=== PATIENT | male | born 1950 | race Caucasian/White ===

== ENCOUNTER 2016-06-26 05:32 | Day surgery (SDC) | payer MEDICARE, OTHER ==
[2016-06-25 16:04] LABS: BASOPHILS 1.4 % (0-2); EOSINOPHILS 5.3 % (0-7); HEMATOCRIT 36.1 % (42.0-54.0); HEMOGLOBIN 11.5 g/dL (13.5-17.5); IMMATURE GRANULOCYTES 0.2 % (0-5); LYMPHOCYTES 14.8 % (15-50); MCH 31.6 pg (26.0-34.0); MCHC 31.9 g/dL (31.0-37.0); MCV 99.2 fL (80.0-100.0); MEAN PLATELET VOLUME 11.1 fL (7.4-10.4); MONOCYTES 8.7 % (2-11); NEUTROPHILS 69.6 % (40-80); RBC 3.64 10x6/uL (4.20-6.10); WBC 5.6 10x3/uL (4.8-10.8)
[2016-06-25 16:12] LABS: PLATELET COUNT 132 10x3/uL (130-400)
[2016-06-25 16:20] LABS: ANION GAP 13.1 mmol/L (8-16); APTT 27.5 SECONDS (22.8-39.4); CALCIUM 7.7 mg/dL (8.5-10.1); CARBON DIOXIDE 29.7 mmol/L (21.0-32.0); INR 1.04 (0.85-1.17); POTASSIUM - SERUM 4.8 mmol/L (3.5-5.1); PROTIME 13.5 SECONDS (11.6-15.0)
[~2016-06-26] VITALS: Ht 190.5 cm; Wt 70.5 kg
--- NOTE | ~2016-06-26 | OP ---
PATIENT NAME: LAURI BRAVO MEDICAL RECORD: [id number] :48 LOCATION:D.M2 D.2107 ADMISSION DATE: SURGEON: SANDRA EDWARDS MD DATE OF OPERATION: 06/26/2016 REFERRING PHYSICIAN: Ajith Morris MD. PREOPERATIVE DIAGNOSES: Exit site infection and superficial cuff infection of the peritoneal dialysis catheter in the right lower quadrant and symptomatic reducible initial periumbilical epigastric hernia and bilateral reducible initial inguinal hernias. POSTOPERATIVE DIAGNOSES: Exit site infection and superficial cuff infection of the peritoneal dialysis catheter in the right lower quadrant and periumbilical epigastric hernia approved to be an initial epigastric incisional hernia at the site of prior laparoscopic access and the inguinal hernias were both direct inguinal hernias. OPERATIONS PERFORMED: Repair of bilateral direct inguinal hernias using Phasix Plug and Patch on the right and PerFix Light Plug and Patch on the left side. On the left side, 2 large plugs were used whereas on the ____, a single extra large size Phasix plug was used. Additionally, there was a mesh repair of the periumbilical incisional hernia using a 1.7 inch diameter circular or round Ventralex ST hernia mesh and then also revision of peritoneal dialysis catheter by removal of the superficial cuff and culturing of the exit site and tract. SURGEON: Sandra Edwards MD. 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 PREOPERATIVE NOTE: Mr. Bravo is a very nice 66-year-old white male patient from [place], referred I think by Dr. Morris. 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 He has a functioning large nice brachiocephalic AV fistula on the left arm and he is brought to the operating room at this time with plans to repair all 3 of his hernias. Hopefully, we can fix his peritoneal catheter by shaving off the superficial cuff and then going on hemodialysis for the next 4-6 weeks, preferably 6 weeks while his hernia repairs heal before resuming peritoneal dialysis. DESCRIPTION OF PROCEDURE: Under anesthesia, the patient was prepped and draped in a sterile manner in supine position. The inguinal hernias were repaired first and the right side was done first. An oblique incision was made in the subcutaneous tissues divided with electrocautery. The external oblique aponeurosis was opened parallel to the inguinal canal. The cord was mobilized and retracted with a [place] drain and a large direct inguinal hernia was dissected and its margin incised. The hernia was then reduced into the preperitoneal space. I inserted a size extra large Phasix absorbable plug and it was sutured in position circumferentially with interrupted simple 3-0 sutures. The mesh was then applied to the floor of the canal and sutured in place again with interrupted simple 3-0 sutures. It was sutured to the shelving edge of the inguinal ligament and to the internal oblique muscle and aponeurosis superiorly. The mesh was cut in a keyhole so as to fit around the cord laterally. The wound was irrigated with Ancef and gentamicin solution, infiltrated and irrigated with 0.25% Marcaine with epinephrine. The external OPERATIVE REPORT [id number] LAURI BRAVO C oblique was then approximated over the cord with interrupted 3-0 Vicryl. Negro fascia was closed with interrupted 3-0 Vicryl and the skin was closed with running intracuticular 4-0 Monocryl. The left side was then approached in exactly the same manner. The operative findings were the same, only the hernia was actually a little larger. We did not have another extra large either Phasix or PerFix plug, so I used 2 size large PerFix polypropylene mesh plugs; they were sutured together and then placed into the defect and sutured circumferentially with interrupted 3-0 Vicryl. The PerFix Light mesh patch was then applied to the floor of the canal. Again, a keyhole was cut for the cord. The external oblique aponeurosis approximated over it. The wound infiltrated with 0.25% Marcaine with epinephrine and irrigated with antibiotic solution. The Negro fascia layer was closed with 3-0 and the skin closed with running intracuticular 4-0 Monocryl and the skin closed with Dermabond. The incisions were dressed with Maxorb Ag, Tegaderm and Cavilon skin prep. The peritoneal catheter was isolated during this portion of the operation. It was at this point exposed and with some blunt dissection, the superficial cuff freed from the surrounding tissues and I was able to pull it and stretch the catheter, so that it came out through the exit site. I then used a 10-blade scalpel to shave off the cuff and was able to do so without any nicks or cuts into the tube. I cultured the exit site in the tunnel for aerobic and anaerobic organisms. It was subsequently dressed with a chlorhexidine Biopatch and dressed with Tegaderm. The catheter itself was flushed with saline and then the heparin locked and curled up on the abdominal wall in the right lower quadrant and that was covered with a Medipore dressing. I then re-prepped the rest of the abdomen and draped off the peritoneal dialysis catheter. A midline incision was made just from the umbilicus to about an inch above. Hemostasis was obtained with electrocautery and electrocautery dissection was used to dissect the incisional hernia sac from the surrounding tissues. It was opened and resected. I inserted a 1.7 inch diameter that size small Ventralex ST hernia patch and deployed it against the anterior abdominal wall. The fascial defect was then approximated transversely with interrupted 0 Vicryl sutures, which also incorporated the strap on the Ventralex patch. The excess strap was trimmed away. The wound irrigated with Ancef and gentamicin solution, infiltrated with Marcaine and closed in layers with interrupted 0 Vicryl and interrupted inverted 3-0 Vicryl and the skin was closed with running intracuticular 4-0 Monocryl. It was sealed and the closure completed with Dermabond glue. It was dressed with Maxorb Ag, Tegaderm and Cavilon skin prep. The patient was at that point awakened and taken to the recovery room in stable condition. Blood loss during the operation was trivial and then unreplaced and all sponges, instruments, and needles were accounted for at the termination of the operation. The surgical specimen consisted of the incisional hernia sac and no drain was used. PLAN: For the patient to remain in overnight observation to be certain that his pain is controlled and he is able to initiate hemodialysis tomorrow, I believe. 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 TRANSINT:[id number] Voice Confirmation ID: [id number] DOCUMENT ID: [id number] OPERATIVE REPORT [id number] LAURI BRAVO JAMES MD CC: AJITH MORRIS MD [id number] DICTATION DATE: 06/26/161425 AIRCRAFT CLEANER: 06/26/162038 [facility] [address] [place] [address]
[~2016-06-26 05:32] MED LIST: BAYER CHEWABLE81 MG PO; EZFE 200200 MG PO; LISINOPRIL2.5 MG PO; OMEPRAZOLE20 M1 PO; PHOSLO667 MG PO; TOPROL XL50 MG PO; ULTRAM50 MG PO; ZOCOR10 MG PO
[2016-06-26 06:21] VITALS: BP 162/90; BMI 19.4
[2016-06-26 13:02] VITALS: BP 154/76
[2016-06-26 13:23] VITALS: BP 157/76; Ht 190.5 cm; Wt 70.5 kg
[2016-06-26 16:28] VITALS: BP 142/79
[2016-06-26 20:00] VITALS: BP 158/84
[2016-06-27] VITALS: BP 116/50
[2016-06-27 04:00] VITALS: BP 126/72
[2016-06-27 05:52] LABS: BASOPHILS 0.5 % (0-2); EOSINOPHILS 0 % (0-7); HEMATOCRIT 31.2 % (42.0-54.0); HEMOGLOBIN 9.9 g/dL (13.5-17.5); IMMATURE GRANULOCYTES 0.2 % (0-5); LYMPHOCYTES 7.2 % (15-50); MCH 31.4 pg (26.0-34.0); MCHC 31.7 g/dL (31.0-37.0); MONOCYTES 9.7 % (2-11); NEUTROPHILS 82.4 % (40-80); PLATELET COUNT 137 10x3/uL (130-400); RBC 3.15 10x6/uL (4.20-6.10); RDW 14.3 % (11.5-14.5)
[2016-06-27 06:08] LABS: ANION GAP 17.6 mmol/L (8-16); CALCIUM 7.9 mg/dL (8.5-10.1); CARBON DIOXIDE 23.8 mmol/L (21.0-32.0); CREATININE - SERUM 9.4 mg/dL (0.6-1.3); PHOSPHOROUS 6.8 mg/dL (2.5-4.9); POTASSIUM - SERUM 5.4 mmol/L (3.5-5.1)
[2016-06-27 06:14] LABS: WBC 8.4 10x3/uL (4.8-10.8)
[2016-06-27 08:10] VITALS: BP 188/77
[2016-06-27] MEDS ORDERED: ULTRAM50 MG PO (08:58)
[2016-07-04 15:24] LABS: AEROBE ID Final report (())
== END 2016-06-27 09:45 | disposition home or self-care (01) ==
LOC: D.OPS 05:32 → D.M2 05:32 → D.PAN 08:00 → D.OPS 08:00 → D.M2 12:58 → D.OPS 06-27 09:45
PROVIDERS: Internal Medicine Nephrology; Surgery
DX: T85.71XA Infection and inflammatory reaction due to peritoneal dialysis catheter, initial encounter (principal); K43.9 Ventral hernia without obstruction or gangrene; K42.9 Umbilical hernia without obstruction or gangrene; N18.6 End stage renal disease; Z99.2 Dependence on renal dialysis; I25.10 Atherosclerotic heart disease of native coronary artery without angina pectoris; Z95.1 Presence of aortocoronary bypass graft; Z01.812 Encounter for preprocedural laboratory examination

== ENCOUNTER 2018-03-31 17:21 | Inpatient (IN) | payer MEDICARE, OTHER ==
[~2018-03-31] VITALS: Ht 190.5 cm; Wt 72.7 kg
--- NOTE | ~2018-03-31 | HEMODYNAMI ---
PATIENT:LAURI BRAVO MEDICAL RECORD: [id number] : 46 [id number] ADMISSION DATE: 03/31/18 Generatedon:04/02/20189:27 Patient name: LAURI BRAVO Patient #: [id number] SSN: : 1950 Date of study: 04/02/2018 Page: Of Hemodynamic Procedure Report Patient Data Patient Demographics Procedure consent was obtained First Name: LAURI Gender: Male Last Name: LAWRENCE : 1950 Middle Initial: C Age: 67 year(s) Patient #: [id number] Race: Unknown Additional ID: [id number] Contact details [address]: [address] [place] [address] State: [place] City: [place] Zip code: [address] Past Medical History Allergies Allergen Reaction Date Comments Reported Other allergy 04/02/2018 Lipitor Admission Admission Data Admission Date: 03/31/2018 Admission Time: 19:28 Admit Source: Other Room #: D.2119 Height (in.): 75 BSA: 2 (m2) Height (cm.): 190.5 BMI: 20.17 (kg/m2) Weight (lbs.): 161.34 Weight (kg.): 73.18 Lab Results Lab Result Date: 04/02/2018 Lab Result Time: 5:09 Biochemistry Name Units Result Min Max BUN mg/dl 95 --(----)-* 7 18 Creatinine mg/dl 11.4 --(----)-* 0.6 1.3 CBC Name Units Result Min Max Hematocrit % 29.7 *-(----)-- 42 54 Hemoglobin g/dl 10.1 *-(----)-- 13.5 17.5 Procedure Procedure Types Cath Procedure Diagnostic Procedure LHC LHC w/Coronaries w/Grafts Sedation Charges Moderate Sedation up to 15 minutes PCI Procedure Coronary Stent Coronary Stent Initial Peripheral Cath Diagnostic Procedure Steam Plant Operator Peripheral Procedures Pduuq-Vrnepdr-Nbo-Off Peripheral vascular Intervention Stent Stent Iliac w/plasty Initial Procedure Description Procedure Date Procedure Date: 04/02/2018 Procedure Start Time: 8:59 Procedure End Time: 9:23 Procedure Staff Name Function Felton Apple MD Performing Physician Morgan Bañuelos RT Monitor Angelic Mendez RT Scrub Vini Mendoza RN Nurse Procedure Data Cath Procedure Fluoroscopy Diagnostic fluoroscopy Total fluoroscopy Time: 5.3 time: 5.3 min min Diagnostic fluoroscopy Total fluoroscopy dose: 845 dose: 845 mGy mGy Contrast Material Contrast Material Type Amount (ml) Isovue 300 176 Entry Location Entry Primary Successful Side Size Upsize 1 Upsize Entry Closure Phillips ccessful Closure Location (Fr) (Fr) 2 (Fr) Remarks Device Remarks Femoral Left 5 Fr 6 Fr 6 Fr Exoseal artery Mid-Length Short Estimated blood loss: 10 ml Diagnostic catheters Device Type Used For End Catheter Placement MULTIPACK 3DRC 5Fr Procedure catheter MULTIPACK JL 4.0 5Fr Procedure catheter DIAGNOSTIC AR2 MOD 5 Fr Procedure catheter ([id number]) MULTIPACK Pigtail 5 Fr Procedure catheter Procedure Complications No complications Procedure Medications Medication Administration Route Dosage 0.9% NaCl I.V. 10 ml/hr Oxygen etCO2 Nasal cannula 2 l/min Heparin Flush Bag added to field 2 bags (1000units/500ml NS) Lidocaine 2% added to field 20 Benadryl I.V. 50 mg Versed I.V. 1 mg Fentanyl I.V. 50 mcg Versed I.V. 1 mg Fentanyl I.V. 50 mcg Heparin Bolus I.V. 4000 units Integrilin (Bolus I.V. 6.8 ml 2mg/ml) Integrilin (Bolus wasted 3.2 ml 2mg/ml) Plavix P.O. 600 mg Hemodynamics Rest BSA: 2 (m2) HGB: 10.1 (g/dl) O2 Consumption: Estimated: 204.41 (ml/min) O2 Consu mption indexed: Estimated:102.2 (ml/min/m) Heart Rate: 34 (bpm) Pressure Samples Time Site Value (mmHg) Purpose Heart Use Rate(bpm) 9:06 LV 148/8,94 Snapshot 29 Snapshots Pre Cath Intra NCS Post Cath Vital Signs Time Heart Resp SPO2 etCO2 NIBP (mmHg) Rhythm Pain Sedation Rate (ipm) (%) (mmHg) Status Level (bpm) 8:16:38 81 15 97 0 126/69(99) NSR 0 (11) 10(A) , No pain 8:20:48 72 12 98 0 121/70(103) NSR 0 (11) 10(A) , No pain 8:24:58 69 11 96 1.5 114/65(92) NSR 0 (11) 10(A) , No pain 8:29:06 73 13 95 1.5 102/62(85) NSR 0 (11) 10(A) , No pain 8:33:10 75 13 96 24.2 103/64(87) NSR 0 (11) 10(A) , No pain 8:37:11 71 13 97 20.4 103/64(92) NSR 0 (11) 10(A) , No pain 8:41:15 71 17 97 17.3 107/62(89) NSR 0 (11) 10(A) , No pain 8:45:19 73 13 97 27.2 105/65(89) NSR 0 (11) 10(A) , No pain 8:49:20 69 12 96 12.8 101/67(83) NSR 0 (11) 10(A) , No pain 8:53:22 70 11 97 24.9 102/65(83) NSR 0 (11) 10(A) , No pain 8:57:26 70 13 98 12.1 104/61(87) NSR 0 (11) 10(A) , No pain 9:01:30 76 13 94 30.2 108/63(88) NSR 0 (11) 10(A) , No pain 9:05:33 78 19 92 18.1 104/66(96) NSR 0 (11) 9(A) , No pain 9:09:37 78 18 92 28 104/63(80) NSR 0 (11) 9(A) , No pain 9:13:43 76 14 93 26.4 105/58(85) NSR 0 (11) 10(A) , No pain 9:17:45 85 24 92 12.8 95/67(88) NSR 0 (11) 10(A) , No pain 9:21:44 82 12 93 21.1 92/68(85) NSR 0 (11) 10(A) , No pain Medications Time Medication Route Dose Verified Delivered Reason Notes Effectiveness by by 8:23:32 0.9% NaCl I.V. 10 Vini Vini Per physician ml/hr Reji Mendoza RN RN 8:23:43 Oxygen etCO2 2 Vini Vini Per physician Nasal l/min Reji Mendoza cannula RN RN 8:23:53 Heparin Flush added 2 Vini Vini used for Bag to bags Reji Mendoza procedure (1000units/500ml field RN RN NS) 8:24:08 Lidocaine 2% added 20ml Vini Vini for local to vial Reji Mendoza anesthetic field RN RN 8:24:19 Benadryl I.V. 50 mg Vini Vini Per physician Reji Mendoza RN RN 8:56:15 Versed I.V. 1 mg Vini Vini for sedation Reji Mendoza RN RN 8:56:23 Fentanyl I.V. 50 Vini Vini for sedation mcg Reji Mendoza RN RN 8:59:56 Versed I.V. 1 mg Vini Vini for sedation Reji Mendoza RN RN 9:00:01 Fentanyl I.V. 50 Vini Vini for sedation mcg Reji Mendoza RN RN 9:10:47 Heparin Bolus I.V. 4000 Vini Vini for units Reji Mendoza anticoagulation RN RN 9:11:03 Integrilin I.V. 6.8 Vini Vini for (Bolus 2mg/ml) ml Reji Mendoza antiplatelet RN RN therapy 9:11:14 Integrilin wasted 3.2 Vini Vini to sharp's (Bolus 2mg/ml) ml Reji Mendoza RN RN 9:26:47 Plavix P.O. 600 Vini Vini for mg Reji Mendoza antiplatelet RN RN therapy Procedure Log Time Note 7:54:31 Informed consent obtained and on chart 7:54:39 Admit Source: Other 7:54:52 Diagnostic Cath status Elective 7:54:53 Time tracking: Regular hours (M-F 7:00 - 5:00) 7:54:56 Plan of Care:Hemodynamics will remain stable., Cardiac rhythm will remain stable., Comfort level will be maintained., Respiratory function will remain adequate., Patient/ family verbilizes understanding of procedure., Procedure tolerated without complication., Recovers from procedure without complications.. 7:55:09 H&P Date Dictated: 03/31/2018 Within 30 days and on chart.. 7:55:39 Lab Result : BUN 99 mg/dl 7:55:39 Lab Result : Hemoglobin 8 g/dl 7:55:39 Lab Result : Creatinine 11.4 mg/dl 7:55:39 Lab Result : Hematocrit 23.3 % 7:55:41 Lab results completed and on chart. 7:56:26 Angelic Andrea WILD(R) sent for patient. Start room use. 8:04:23 Patient Weight : 161.34 lbs 8:04:39 Patient Height : 75 inches 8:07:22 Patient received from Med II to CCL 2 Alert and oriented. Tansferred to table in Supine position. 8:07:23 Warm blankets applied, and marcial hugger turned on for patient comfort. 8:07:23 Correct patient and procedure confirmed by team. 8:07:24 ECG and BP/O2 sat monitors applied to patient. 8:15:25 Vital chart was started 8:15:28 Baseline sample Acquired. 8:15:30 Baseline sample Acquired. 8:15:36 Rhythm: sinus rhythm 8:15:37 Full Disclosure recording started 8:15:53 H&P Date Dictated: 03/31/2018 Within 30 days and on chart., H&P Addendum completed by physician on day of procedure. (MUST COMPLETE FOR ALL OUTPATIENTS). 8:15:54 Pre-procedure instructions explained to patient. 8:15:56 Family in waiting room. 8:15:58 Patient NPO since Midnight. 8:16:21 Patient allergic to Other allergyLipitor 8:16:23 Is the patient allergic to Iodine/contrast media? No. 8:16:25 Was the patient premedicated? Yes 8:16:27 Is patient on blood thinner?No 8:18:09 Patient diabetic? No. 8:18:14 Snore? No 8:18:15 Sleep apnea? No 8:18:21 Patient pain scale 0/10 ?. 8:18:30 IV patent on arrival in right forearm with 0.9% NaCl at KVO. 8:18:39 Left groin area was prepped with chlora-prep and draped in sterile fashion 8:18:41 Alarms reviewed by R. N. 8:18:41 Sharps counted by scrub and verified by R.N. 8:23:32 0.9% NaCl 10 ml/hr I.V. was administered by Vini Mendoza RN; Per physician; 8:23:43 Oxygen 2 l/min etCO2 Nasal cannula was administered by Vini Mendoza RN; Per physician; 8:23:53 Heparin Flush Bag (1000units/500ml NS) 2 bags added to field was administered by Vini Mendoza RN; used for procedure; 8:24:08 Lidocaine 2% 20ml vial added to field was administered by Vini Mendoza RN; for local anesthetic; 8:24:19 Benadryl 50 mg I.V. was administered by Vini Mendoza RN; Per physician; 8:28:16 Lab Result : BUN 95 mg/dl 8:28:16 Lab Result : Creatinine 11.4 mg/dl 8:28:16 Lab Result : Hemoglobin 10.1 g/dl 8:28:16 Hemodynamic formulas in Rest were re-calculated based on hemoglobin value from 04/02/2018 5:09:00 AM 8:28:16 Lab Result : Hematocrit 29.7 % 8:28:28 Use device set Femoral Dx 8:28:29 ACIST Syringe (40936) opened to sterile field. 8:28:30 Bag Decanter (2002S) opened to sterile field. 8:28:30 Medline Cath Pack ([id number]) opened to sterile field. 8:28:31 ACIST Hand Control (73932) opened to sterile field. 8:28:31 ACIST Manifold (82912) opened to sterile field. 8:28:32 Tegaderm 4 x 4 (1626W) opened to sterile field. 8:28:34 DIAGNOSTIC Multipack 5Fr catheter set (PG0004) opened to sterile field. 8:28:35 DIAGNOSTIC WIRE .035 260cm J wire (185404) opened to sterile field. 8:31:03 Baseline sample Acquired. 8:32:59 Zero performed for pressure channel P1 8:53:07 Physician arrived 8:53:07 --------ALL STOP TIME OUT------ 8:53:07 Final Timeout: patient, procedure, and site verified with staff and physician. All members of the team are in agreement. 8:53:09 Left groin site verified by team. 8:53:16 Fire Safety Assessment: A--An alcohol-based skin anteseptic being used preoperatively., C--Open oxygen or nitrous oxide is being used., D--An ESU, laser, or fiber-optic light is being used. 8:53:18 Physical assessment completed. ASA score P 3 - A patient with severe systemic disease as per Felton Apple MD. 8:53:20 Sedation plan: IV Moderate Sedation Medication:Versed, Fentanyl 8:56:15 Versed 1 mg I.V. was administered by Vini Mendoza RN; for sedation; 8:56:23 Fentanyl 50 mcg I.V. was administered by Vini Mendoza RN; for sedation; 8:56:29 SHEATH 5FR Cordis Dina([id number]) NO COST SUPPLY opened to sterile field. 8:59:04 Procedure started. 8:59:06 Local anesthetic to left femerol artery with Lidocaine 2% by Felton Apple MD.INITIAL ACCESS ONLY 8:59:17 A 5 Fr sheath was inserted into the Left Femoral artery 8:59:56 Versed 1 mg I.V. was administered by Vini Mendoza RN; for sedation; 9:00:01 Fentanyl 50 mcg I.V. was administered by Vini Mendoza RN; for sedation; 9:01:04 A MULTIPACK 3DRC 5Fr catheter was advanced over the wire and used for Procedure. 9:01:48 RCA angiography performed. 9:02:10 SVG to RCA angiography performed. 9:02:25 Catheter exchanged over wire. 9:02:56 A MULTIPACK JL 4.0 5Fr catheter was advanced over the wire and used for Procedure. 9:03:28 LCA angiography performed. 9:04:38 Catheter exchanged over wire. 9:04:45 A DIAGNOSTIC AR2 MOD 5 Fr catheter ([id number]) was advanced over the wire and used for Procedure. 9:05:01 INFLATOR Merit BasixCompak (AH2654) opened to sterile field. 9:05:01 CHOICE PT Extra Support 182cm wire ([id number]) opened to sterile field. 9:05:02 SHEATH 6FR [place] (LVH861) opened to sterile field. 9:05:48 SVG to Circ angiography performed. 9:06:27 Catheter exchanged over wire. 9:06:32 A MULTIPACK Pigtail 5 Fr catheter was advanced over the wire and used for Procedure. 9:07:18 LV gram done using KIM 9::21 Injector settings: Ml/sec: 10, Volume: 20, 9::25 EF : 40 % 9:07:25 LV hemodynamics recorded. 9:07:28 Abdominal angiogram w/ runoff was performed. 9:07:32 Left leg runoff performed. 9:07:33 Right leg runoff performed. 9::55 Catheter removed. 9:08: SHEATH 6FR Brite Tip 35cm ([id number]) opened to sterile field. 9:08:38 Sheath upsized to a 6 Fr Mid-Length. 9:10:47 Heparin Bolus 4000 units I.V. was administered by Vini Mendoza RN; for anticoagulation; 9:11:03 Integrilin (Bolus 2mg/ml) 6.8 ml I.V. was administered by Vini Mendoza RN; for antiplatelet therapy; 9:11:09 J wire advanced. 9:11:14 Integrilin (Bolus 2mg/ml) 3.2 ml wasted was administered by Vini Mendoza RN; to sharp's; 9:11:54 Procedure type changed to Cath procedure, Diagnostic procedure, LHC, LHC w/Coronaries w/Grafts, Sedation Charges, Moderate Sedation up to 15 minutes, PCI procedure, Coronary Stent, Coronary Stent Initial, Peripheral Cath Diagnostic Procedure, Steam Plant Operator Peripheral Procedures, Makni-Esdauey-Gjt-Off, Peripheral vascular Intervention, Stent, Stent Iliac w/plasty Initial 9:12:35 Place stent Inflation Number: 1 A OSMAN 7 x 29 x 135 stent ([id number]) was prepped and advanced across the Proximal Common Iliac, Left. The stent was deployed at 13 SHASHI for 0:10 (min:sec). 9:12:37 Stent catheter was removed intact over wire. 9:12:43 GUIDE 6FR XBLAD 3.5 catheter ([id number]) opened to sterile field. 9:12:50 6 Fr xblad 3.5 guide catheter was inserted over the wire 9:14:15 J wire removed. 9:14:23 choice pt es wire advanced. 9:14:59 Wire advanced across lesion. 9:18:10 Place stent Inflation Number: 1 A INTEGRITY RX 3.5 x 09 stent ([id number]) was prepped and advanced across the LMCA. The stent was deployed at 17 SHASHI for 0:10 (min:sec). 9:18:14 Stent catheter was removed intact over wire. 9:18:14 Wire removed. 9:18:17 Guide catheter removed. 9:18:52 EXOSEAL 6Fr (EX600) opened to sterile field. 9:19:07 Sheath upsized to a 6 Fr Short. 9:19:15 Sheath removed intact; hemostasis achieved with Exoseal to the Left Femoral artery. 9:19:16 Procedure ended.(Physican Out) 9:20:19 FEMSTOP Gold (H83094) opened to sterile field. 9:20:31 Femstop placed over the left femerol artery at 125 mmHg. Hemostasis achieved. 9:20:36 Fluoroscopy time 05.30 minutes. 9:20:39 Fluoroscopy dose: 845 mGy 9:20:39 Flurop Dose total: 845 9:20:42 Contrast amount:Isovue 300 176ml. 9:20:43 Sharps counted by scrub and verified by R.N. 9:20:44 Insertion/operative site no bleeding no hematoma. 9:20:48 Post-op/insertion site Left Femoral artery dressed using a 4 x 4 and Tegaderm. 9:20:54 Post left femerol artery:stable, soft, clean and dry 9:20:55 Post Procedure Pulses reassessed and unchanged 9:20:57 Post-procedure physical assessment completed. ASA score P 3 - A patient with severe systemic disease as per Felton Apple MD. 9:21:03 Post procedure rhythm: unchanged. 9:21:19 Estimated blood loss: 10 ml 9:21:20 Post procedure instruction explained to patient.Patient verbalizes understanding. 9:21:20 Patient needs reinforcement of post procedure teaching. 9:23:00 Procedure Complication : No complications 9:23:02 Procedure and supply charges have been captured, reviewed, submitted and are correct. 9:23:03 Vital chart was stopped 9:23:03 See physician's report for complete and final results. 9:23:05 Report given to PCU. 9:23:07 Patient transfered to PCU with Stretcher. 9:23:09 Procedure ended. 9:23:09 Full Disclosure recording stopped 9:23:15 End room use (Document Last) 9:26:47 Plavix 600 mg P.O. was administered by Vini Mendoza RN; for antiplatelet therapy; Intervention Summary Intervention Notes Time ActionType Lesion and Equipment Action# Pressure Duration Attributes Used 9:12:35 Place stent Proximal OSMAN 7 x 1 13 00:10 Common 29 x 135 Iliac, Left stent ([id number]) 9:18:10 Place stent LMCA INTEGRITY RX 1 17 00:10 3.5 x 09 stent ([id number]) Device Usage Item Name Manufacture Quantity Catalog Number Hospital Part Current Minimal Lot# / Charge Number Stock Stock Serial# Code ACIST Syringe Acist 1 58062 213312 228571 243347 20 (53276) Medical Systems [employer] Bag Decanter Microtek 1 2001S 513507 65624 090205 5 (2001S) Medical Inc. Medline Cath Medline 1 [id number] 382484 34371 362432 5 Pack ([id number]) ACIST Hand Acist 1 11363 780302 941989 964643 5 Control (12223) Medical [employer] ACIST Manifold Acist 1 84236 886786 330779 212061 5 (60234) Medical Systems [employer] Tegaderm 4 x 4 3M 1 1626W 923584 732431 985480 5 (1626W) DIAGNOSTIC Cardinal 1 FN9543 616705 05732 351229 30 Multipack 5Fr Health catheter set (CI0905) DIAGNOSTIC WIRE St Dajuan 1 565401 693200 993240 786083 30 .035 260cm J wire (205541) SHEATH 5FR Cardinal 1 504-605X 289474 831518 5 [employer]. [employer] Dina(504-605X) NO COST SUPPLY MULTIPACK 3DRC Cardinal 1 159378 5 5Fr catheter Health MULTIPACK JL 4.0 Cardinal 1 280435 5 5Fr catheter Health DIAGNOSTIC AR2 Cardinal 1 [id number] 124966 881752 018735 20 MOD 5 Fr Health catheter (372595Y) INFLATOR Merit Merit 1 BQ5116 445724 765329 213385 15 Urjanet (WC5209) CHOICE PT Extra [place] 1 [id number] 047412 489949 877895 5 Support 182cm Scientific wire ([id number]) SHEATH 6FR Terumo 1 HXW621 722779 684606 025496 40 [place] (YXX142) MULTIPACK Cardinal 1 849158 5 Pigtail 5 Fr Health catheter SHEATH 6FR Brite Cardinal 1 668541G 591569 154040 495554 1 Tip 35cm Health (585968I) OSMAN 7 x 29 x Cardinal 1 [id number] 501968 794958 5 [id number] 135 stent Health ([id number]) GUIDE 6FR XBLAD Cardinal 1 [id number] 354073 424305 928732 10 3.5 catheter Health (84983718) INTEGRITY RX 3.5 Medtronic 1 [id number] 377079 735969 268895 5 [id number] x 09 stent ([id number]) EXOSEAL 6Fr Cardinal 1 EX600 538053 113281 919728 10 (EX600) Health FEMSTOP Gold St Dajuan 1 D32629 100928 632665 081955 5 ([id number]) Signature Audit Murdo Stage Time Signature Unsigned Intra-Procedure 04/02/2018 Morgan Bañuelos 9:27:40 AM RT(R) Signatures Monitor : Moragn Bañuelos RT Signature : Date : Time : [id number] [place] [address]
[2018-03-31 18:00] LABS: BASOPHILS 0.8 % (0-2); EOSINOPHILS 2.7 % (0-7); HEMATOCRIT 25.9 % (42.0-54.0); HEMOGLOBIN 8.7 g/dL (13.5-17.5); IMMATURE GRANULOCYTES 0.3 % (0-5); LYMPHOCYTES 10.1 % (15-50); MCHC 33.6 g/dL (31.0-37.0); MCV 95.2 fL (80.0-100.0); MONOCYTES 10.7 % (2-11); NEUTROPHILS 75.4 % (40-80); RBC 2.72 10x6/uL (4.20-6.10); RDW 14.2 % (11.5-14.5); WBC 7.1 10x3/uL (4.8-10.8)
[2018-03-31 18:11] LABS: PLATELET COUNT 188 10x3/uL (130-400)
--- NOTE | 2018-03-31 18:32 | NUR ---
REPORT GIVEN TO FANNY RAMOS AT THIS TIME.
--- NOTE | 2018-03-31 18:39 | NUR ---
ASSUMED CARE OF PATIENT, LAYING UP ON STRETCHER, DENIES PAIN AT THIS TIME, REQUESTED A WARM BLANKET TRYING TO GET SOME REST.
[2018-03-31 18:43] LABS: ALBUMIN 2.3 g/dL (3.4-5.0); ALKALINE PHOSPHATASE 42 U/L (46-116); ALT (SGPT) 19 U/L (10-68); BILIRUBIN - TOTAL 0.27 mg/dL (0.2-1.3); CALC OSMOLALITY 290 mosm/kg (275-300); CARBON DIOXIDE 23.9 mmol/L (21.0-32.0); CHLORIDE - SERUM 88 mmol/L (98-107); CREATININE - SERUM 11.1 mg/dL (0.6-1.3); GLUCOSE 108 mg/dL (74-106); POTASSIUM - SERUM 3.6 mmol/L (3.5-5.1); PROTEIN - SERUM 5.7 g/dL (6.4-8.2); SODIUM 129 mmol/L (136-145); UREA NITROGEN 100 mg/dL (7-18); eGFR NON AFRICAN AMERICAN 5 mL/min (90-120)
[2018-03-31 18:57] LABS: CKMB 35.3 U/L (0.0-3.6); CREATINE KINASE 362 UL (21-232)
[2018-03-31 19:00] LABS: TROPONIN-I 12.436 ng/mL (0.000-0.060)
[2018-03-31 19:06] VITALS: BP 119/70
--- NOTE | 2018-03-31 19:06 | NUR ---
TROP [phone] MD NOTIFIED, PATIENT RESTING COMFORTABLE AT THIS TIME, DENIES PAIN.
--- NOTE | 2018-03-31 20:10 | NUR ---
REPORT RECEIVED FROM FANNY RAMOS
[2018-03-31] MEDS ORDERED: HYDROCODON-ACE1 EAC7 PO (20:45)
--- NOTE | 2018-03-31 20:50 | NUR ---
MARITA QUINTERO APN PAGED AWAITING CALL BACK
[2018-04-01] VITALS (8 sets, daily range): BP systolic 95–121; BP diastolic 41–63; Ht 190.5 cm; Wt 72.7 kg
[2018-04-01 05:17] LABS: BASOPHILS 0.8 % (0-2); HEMATOCRIT 23.3 % (42.0-54.0); IMMATURE GRANULOCYTES 0.2 % (0-5); LYMPHOCYTES 15.6 % (15-50); MCH 32.5 pg (26.0-34.0); MCHC 34.3 g/dL (31.0-37.0); MCV 94.7 fL (80.0-100.0); MEAN PLATELET VOLUME 10.4 fL (7.4-10.4); MONOCYTES 10.8 % (2-11); NEUTROPHILS 67.6 % (40-80); PLATELET COUNT 169 10x3/uL (130-400); RBC 2.46 10x6/uL (4.20-6.10); RDW 14.1 % (11.5-14.5); WBC 6.4 10x3/uL (4.8-10.8)
[2018-04-01 06:06] LABS: ALBUMIN 1.9 g/dL (3.4-5.0); ANION GAP 17.8 mmol/L (8-16); BILIRUBIN - TOTAL 0.27 mg/dL (0.2-1.3); CALCIUM 7.6 mg/dL (8.5-10.1); CARBON DIOXIDE 25.9 mmol/L (21.0-32.0); CREATININE - SERUM 11.4 mg/dL (0.6-1.3); MAGNESIUM - SERUM 1.7 mg/dL (1.8-2.4); POTASSIUM - SERUM 3.7 mmol/L (3.5-5.1)
[2018-04-01 06:08] LABS: TROPONIN-I 8.708 ng/mL (0.000-0.060)
--- NOTE | 2018-04-01 06:36 | NUR ---
PD FLUID TEA COLORED, MARITA QUINTERO NOTIFIED NEW ORDERS OBTAINED. SPECIMEN TAKEN TO THE LAB
--- NOTE | 2018-04-01 07:30 | NUR ---
ALERT AND ORIENTED X4. SITTING UP IN BED. CONSENTS FOR FISHER LINE SIGNED ON CHART. SINUS RHYTHM ON TELEMETRY. DENIES RT AC SL. DENIES ANY NEEDS. CONTINUE PLAN OF CARE AND SAFETY PRECAUTIONS.
[2018-04-01 11:20] LABS: % SATURATION 17 % (15-55); IRON 43 ug/dl (35-150); TOTAL IRON BIND CAPACITY 241 ug/dl (260-445); UNSAT IRON BIND CAPACITY 198 ug/dl (150-375)
--- NOTE | 2018-04-01 12:55 | NUR ---
ALERT AND ORIENTED X4. SITTING UP IN BED. INITIATING PD EXCHANGE AND PRBC TRANSFUSION. T-97.9, R-16, HR-66 SINUS RHYTHM, O2-100% RA. BEGIN TRANSFUSION @ 75mL/HR. REMAIN IN ROOM TO MONITOR.
--- NOTE | 2018-04-01 13:10 | NUR ---
ALERT AND ORIENTED X4. SITTING UP IN BED. PD EXCHANGE CONTINUED. PRBC TRANSFUSION UNIT 1 RATE INCREASE TO 120 mL/HR. BP-110/52, HR-73, R-18, T-98.5. DENIES ANY ITCHING. NO SIGNS OF REACTION. CONTINUE PLAN OF CARE AND SAFETY PRECAUTIONS.
[2018-04-01 13:18] LABS: EOS BF 4 %; MACROPHAGES BF 30 %; NEUT - BF 22 %
--- NOTE | 2018-04-01 17:40 | NUR ---
ALERT AND ORIENTED X4. PRBC UNIT 1 COMPLETE AT 1630. BAG AND TUBING PLACED IN BIOHAZARD BAG. BP-117/55, HR-77, TEMP-97.6 AXILLARY. TAKEN AXILLARY DUE TO EATING DINNER. INITIATE PRBC UNIT 2 TRANSFUSION. BEGIN TRANSFUSION RATE @ 75mL/HR TO MONITOR FOR REACTION. INITIATE PD EXCHANGE. REMAIN AT BEDSIDE SIDE NEXT 15 MINUTES.
--- NOTE | 2018-04-01 19:12 | NUR ---
RECIEVED UP IN BED WITH EYES OPEN AND TV ON. HOB ELOEVATED. ALERT AND ORIENTED X4. UP AD GARY TO B/R. PD TUBE TO RIGHT LOWER QUADRANT. RIGHT ARM RESERVED D/T AVF. IV TO RIGHT AC SL.. DENIES ANY NEEDS AT THIS TIME. WILL CONT. POC.
[2018-04-01 22:25] LABS: HEMATOCRIT 30.2 % (42.0-54.0); HEMOGLOBIN 10.4 g/dL (13.5-17.5)
[2018-04-02] VITALS: BP 96/32
[2018-04-02 05:20] VITALS: BP 108/67
[2018-04-02 05:29] LABS: BASOPHILS 0.4 % (0-2); EOSINOPHILS 4.8 % (0-7); HEMATOCRIT 29.7 % (42.0-54.0); HEMOGLOBIN 10.1 g/dL (13.5-17.5); IMMATURE GRANULOCYTES 0.6 % (0-5); LYMPHOCYTES 10.5 % (15-50); MCH 31.6 pg (26.0-34.0); MCV 92.8 fL (80.0-100.0); MEAN PLATELET VOLUME 10.2 fL (7.4-10.4); MONOCYTES 11.2 % (2-11); NEUTROPHILS 72.5 % (40-80); PLATELET COUNT 161 10x3/uL (130-400); RDW 15.8 % (11.5-14.5); WBC 7.2 10x3/uL (4.8-10.8)
[2018-04-02 05:47] LABS: ALBUMIN 1.8 g/dL (3.4-5.0); BILIRUBIN - DIRECT 0.08 mg/dL (0.00-0.30); BILIRUBIN - INDIRECT 0.22 mg/dL (0.00-1.00); BILIRUBIN - TOTAL 0.3 mg/dL (0.2-1.3); CALCIUM 7.5 mg/dL (8.5-10.1); CARBON DIOXIDE 25.7 mmol/L (21.0-32.0); CREATININE - SERUM 11.4 mg/dL (0.6-1.3); POTASSIUM - SERUM 3.7 mmol/L (3.5-5.1); PROTEIN - SERUM 4.9 g/dL (6.4-8.2)
--- NOTE | 2018-04-02 07:15 | NUR ---
ASSESSMENT DONE. DENIES NEEDS.
[2018-04-02 07:48] VITALS: BP 109/64
--- NOTE | 2018-04-02 08:04 | NUR ---
to asset availability leader per bed
--- NOTE | 2018-04-02 08:35 | NUR ---
IN [place] AT THIS TIME. WILL CONT. PLAN OF CARE.
--- NOTE | 2018-04-02 09:55 | NUR ---
RETURN FROM [place]ES COLORING OPERATOR. FEMSTOP TO LT GROIN. WITHOUT DISTRESS NOTED
--- NOTE | 2018-04-02 11:20 | OP ---
PATIENT NAME: LAURI BRAVO MEDICAL RECORD: [id number] :46 LOCATION:D.M2 D.2119 ADMISSION DATE:03/31/18 SURGEON: ANEUDY HAY MD DATE OF OPERATION: 04/02/2018 PROCEDURES: 1. PTCA stent left main. 2. Left heart catheterization. 3. Selective coronary angiography. 4. Left ventriculogram. 5. Vein graft angiography. 6. PANIAGUA angiography. INDICATION: Unstable angina, acute coronary syndrome, non-Q-wave myocardial infarction. DESCRIPTION OF PROCEDURE: After informed consent was obtained and after a detailed description of risks, benefits as well as alternative therapies, the patient elected to proceed with angiogram and angioplasty. The left femoral area was prepped and draped in normal sterile fashion. Left femoral artery was cannulated via modified Seldinger technique with placement of 6-Korean sheath. All catheters exchanged through this sheath. FINDINGS: Left ventriculogram was performed in standard 30-degree KIM view, reveals global hypokinesis throughout all segments. Overall ejection fraction estimated at 40%. SELECTIVE CORONARY ANGIOGRAPHY: 1. Left main is 90% stenosed. 2. The left anterior descending is totally occluded mid vessel; however, there is a relatively large diagonal system that is affected by the left main stenosis. 3. The left circumflex has 99% stenosis. 4. Vein graft to the circumflex is widely patent. 5. PANIAGUA to the LAD is widely patent. 6. Right coronary artery is totally occluded. 7. Vein graft to the right coronary artery is widely patent. PTCA STENT OF THE LEFT MAIN LEADING TO NON-GRAFTED LAD DIAGONAL: The stent used was a 3.5 x 9 mm Integrity. Result was 0% residual stenosis. OVERALL IMPRESSION: Successful percutaneous transluminal angioplasty stent of the left main going from 90% initial stenosis to 0% residual. TRANSINT:[id number] Voice Confirmation ID: [id number] DOCUMENT ID: [id number] ANEUDY HAY MD at 1120 CC: [id number] DICTATION DATE: 04/02/18927 AUTO TOP MECHANIC: 04/02/18 0947 ADM IN [place] [id number] [place] [address]
--- NOTE | 2018-04-02 11:20 | OP ---
PATIENT NAME: LAURI BRAVO MEDICAL RECORD: [id number] :46 LOCATION:D.M2 D.2119 ADMISSION DATE:03/31/18 SURGEON: ANEUDY HAY MD DATE OF OPERATION: 04/02/2018 PROCEDURE: 1. Stent placement, iliac, left. 2. DIRECTOR OF SECURITY iliac, left. 3. Aortofemoral runoff. 4. Abdominal aortography. INDICATION: Claudication and peripheral vascular disease. PROCEDURE IN DETAIL: After informed consent was obtained and after a detailed description of risks, benefits as well as alternative therapies, the patient elected to proceed with angiogram and angioplasty. The left femoral area had a preexisting sheath from cardiac intervention. All catheters exchanged through this sheath. OVERALL FINDINGS: Abdominal aortography was performed. The catheter was pulled down for aortofemoral runoff. Abdominal aortography reveals a tortuous aorta, but not stenosed. No dissection or aneurysm formation. RIGHT LEG: A. Iliac: The common internal and external iliacs have moderate irregularities, but no flow-limiting stenosis. B. Femoral system: Common and deep femoral are widely patent. Superficial femoral has moderate irregularities, but no flow-limiting stenosis. C. Popliteal and infrapopliteal vessels are patent giving 3-vessel runoff to the foot, although mild to moderately diffusely diseased. LEFT LEG: A. Iliac: The common iliac has 70+ percent stenosis that we could not get a catheter passed initially. B. Femoral system: The common superficial and deep femoral have moderate irregularities, but no flow-limiting stenosis. There is a previously placed stent in the superficial femoral. This is patent. C. Popliteal and infrapopliteal vessels are patent giving 3-vessel runoff to the foot, although mild to moderately diffusely diseased. DIRECTOR OF SECURITY STENT LEFT ILIAC: The balloon and stent used was a 7 x 29 Cordis Haily taken to 13 atmospheres. Result was 0% residual. OVERALL IMPRESSION: Successful percutaneous transluminal angioplasty stent of the left iliac going from greater than 70% initial stenosis to 0% residual. TRANSINT:[id number] Voice Confirmation ID: [id number] DOCUMENT ID: [id number] OPERATIVE REPORT [id number] LAURI BRAVO ANEUDY HAY MD at 1120 CC: [id number] DICTATION DATE: 04/02/18927 BRICK AND TILE MAKING MACHINE OPERATOR: 04/02/18947 ADM IN [facility] [address] [facility], [facility]
--- NOTE | 2018-04-02 19:42 | NUR ---
RESUMED CARE OF PT, LYING IN BED RESPIRATIONS EVEN AND UNLABORED ON ROOM AIR. 81 SR ON TELEMETRY. RIGHT AC SALINE LOCKED. RIGHT GROIN C/D/I. CALL LIGHT IN REACH. SEE NURSE ASSESSMENT.
[2018-04-02 20:00] VITALS: BP 119/71
[2018-04-03 00:43] VITALS: BP 110/67
[2018-04-03 04:00] VITALS: BP 99/59
[2018-04-03 05:23] LABS: BASOPHILS 0.8 % (0-2); EOSINOPHILS 4.3 % (0-7); HEMATOCRIT 29.9 % (42.0-54.0); HEMOGLOBIN 10.4 g/dL (13.5-17.5); IMMATURE GRANULOCYTES 0.5 % (0-5); LYMPHOCYTES 9.5 % (15-50); MCH 32.2 pg (26.0-34.0); MCHC 34.8 g/dL (31.0-37.0); MCV 92.6 fL (80.0-100.0); MEAN PLATELET VOLUME 10.4 fL (7.4-10.4); MONOCYTES 9.8 % (2-11); NEUTROPHILS 75.1 % (40-80); PLATELET COUNT 177 10x3/uL (130-400); RBC 3.23 10x6/uL (4.20-6.10); RDW 15.9 % (11.5-14.5); WBC 7.7 10x3/uL (4.8-10.8)
[2018-04-03 05:39] LABS: ANION GAP 15.3 mmol/L (8-16); CALCIUM 7.2 mg/dL (8.5-10.1); CARBON DIOXIDE 25.3 mmol/L (21.0-32.0); CREATININE - SERUM 11.7 mg/dL (0.6-1.3); POTASSIUM - SERUM 3.6 mmol/L (3.5-5.1)
--- NOTE | 2018-04-03 07:20 | NUR ---
AWAKE AND ALERT. DENIES ANY NEEDS. TELEMERTY SHOWS SR 66.RIGHT AC SL. LEFT GROIN DRSG DRY AND INTACT. PD CATHER NOTED. RESERVE LEFT ARM. SR UP WITH CALL LIGHT IN REACH
[2018-04-03 07:58] VITALS: BP 105/59
--- NOTE | 2018-04-03 08:47 | NUR ---
Rehab Note- Acute Inpatient Rehab prescreen order received. The patient has a pending PT Eval- will await & see the patient's functional level. Will contiinue to follow. Thank you for this referral! Dayanna Avelar RN Clinical Liaison, [facility] Rehab
--- NOTE | 2018-04-03 09:21 | NUR ---
RESTS IN BED WITHOUT NEEDS VOICED. CALL LIGHT IN REACH. WILL MONITOR.
[2018-04-03 11:33] VITALS: BP 99/55
--- NOTE | 2018-04-03 11:45 | MORECARE ---
CASE MANAGEMENT DISCHARGE SUMMARY PATIENT: LAURI BRAVO UNIT: [id number] ADM DATE: 03/31/18 AGE: 67 : 48 SEX: M ROOM/BED: D.211 AUTHOR: RAHUL GALICIA PHYSICIAN: REFERRING PHYSICIAN: VINICIUS SOSA MD DATE OF SERVICE: 04/03/18 Discharge Plan Patient Name: LAURI BRAVO Facility: [facility]:[place] : 1950 Planned Disposition: Outpatient PT\OT Anticipated Discharge Date: 04/04/18 Discharge Date: Expected LOS: 4 Initial Reviewer: [email or web address] Initial Review Date: 04/03/2018 Generated: 04/03/18 12:45 pm Patient Name: LAURI BRAVO Page 94643 at 1145 All edits/amendments must be made on the electronic document DICTATION DATE: 04/03/18 1145 MACHINE SILK SCREEN PRINTER: KAYLEE 04/03/18 1145 RPT#: [id number] DC DATE: STATUS: ADM IN [facility] [address] [place] [address] END OF REPORT
--- NOTE | 2018-04-03 11:54 | MORECARE ---
CASE MANAGEMENT DISCHARGE SUMMARY PATIENT: LAURI BRAVO UNIT: [id number] ADM DATE: 03/31/18 AGE: 67 : 48 SEX: M ROOM/BED: D.4325 AUTHOR: RAHUL GALICIA PHYSICIAN: REFERRING PHYSICIAN: VINICIUS SOSA MD DATE OF SERVICE: 04/03/18 Discharge Plan Patient Name: LAURI BRAVO [facility] : 1950 Planned Disposition: Outpatient PT\OT Anticipated Discharge Date: 04/04/18 Discharge Date: Expected LOS: 4 Initial Reviewer: [email or web address] Initial Review Date: 04/03/2018 Generated: 04/03/18 12:54 pm DCPIA - Discharge Planning Initial Assessment Updated by [id number]: Marquis Patton on 04/03/18 11:51 am * Is the patient Alert and Oriented? Yes * How many steps to enter\exit or inside your home? 0--I * PCP DR. JOY IN [facility], LAST SEEN 09/2017 DR. ALVAREZ IN [place], FIRST APPT 05/2018 * Pharmacy [facility] IN [place] * Preadmission Environment Home with Family * ADLs Independent * Equipment None * Other Equipment NO MEDICAL EQUIPMENT PROVIDER PREFERENCE * List name and contact numbers for known caregivers / representatives who currently or will assist patient after discharge: MELISSA BRAVO, SPOUSE, CARLEE MOJICA, DTR, * Verbal permission to speak to the caregivers and representatives has been obtained from the patient. Yes * Community resources currently utilized None * Please name any agencies selected above. NONE * Additional services required to return to the preadmission environment? No * Can the patient safely return to the preadmission environment? Yes * Has this patient been hospitalized within the prior 30 days at any hospital? No Patient Name: LAURI BRAVO Page 30503 at 1154 All edits/amendments must be made on the electronic document DICTATION DATE: 04/03/18 1153 BRAKE RELINER: KAYLEE 04/03/18 1153 RPT#: [id number] DC DATE: STATUS: ADM IN [facility] [address] [place] [address] END OF REPORT
--- NOTE | 2018-04-03 12:02 | MORECARE ---
CASE MANAGEMENT DISCHARGE SUMMARY PATIENT: LAURI BRAVO UNIT: [id number] ADM DATE: 03/31/18 AGE: 67 : 48 SEX: M ROOM/BED: D.7339 AUTHOR: FRIDA,DOC PHYSICIAN: REFERRING PHYSICIAN: VINICIUS SOSA MD DATE OF SERVICE: 04/03/18 Discharge Plan Patient Name: LAURI BRAVO Facility: [facility]:[place] : 1950 Planned Disposition: Outpatient PT\\OT Anticipated Discharge Date: 04/04/18 Discharge Date: Expected LOS: 4 Initial Reviewer: [id number] Initial Review Date: 04/03/2018 Generated: 04/03/18 1:02 pm Comments DCP- Discharge Planning Updated by [email or web address]: Marquis Patton on 04/03/18 11:[address] Patient Name: LAURI BRAVO Admission Status: ER Accout number: [id number] Admission Date: 03-31-2018 : 1950 Admission Diagnosis: Attending: VINICIUS SOSA Current LOS: 3 Anticipated DC Date: 04-04-2018 Planned Disposition: Outpatient PT\\OT Primary Insurance: MEDICARE A & B PLANNED [facility] Discharge Planning Comments: CM RECEIVED REQUEST TO SPEAK TO PT AND FAMILY 04-02-18. ON 04-03-18, CM MET WITH PT AND SPOUSE IN ROOM TO DISCUSS DISCHARGE PLANNING AND NEEDS. CM APOLOGIZED FOR NOT BEING ABLE TO SEE THEM ON 04-02. LAURI BRAVO provided verbal consent to discuss current and ongoing needs with/in the presence of: SPOUSE, MELISSA. PT REPORTS LIVING AT HOME INDEPENDENTLY WITH SPOUSE. PT HAS NO MEDICAL EQUIPMENT AND NO OUTSIDE SERVICES ASSISTING IN THE HOME. CM DISCUSSED AVAILABILITY OF HOME HEALTH, REHAB SERVICES AND MEDICAL EQUIPMENT. PT'S SPOUSE REPORTS THAT PT HAS DONE NOTHING FOR THE PAST 4 MONTHS EXCEPT LAY IN THE BED. SPOUSE STATES THAT PT WILL GET UP DAILY, WALK UPSTAIRS TO PLAY GAMES ON HIS COMPUTER BUT IS DOING "NOTHING ELSE". SPOUSE REPORTS SHE WANTS PT IN SKILLED OR INPATIENT REHAB. PT DECLINES PLACEMENT. PT'S SPOUSE ASKED ABOUT TAKING PT TO THE [facility] FOR REHAB. PT IS AGREEABLE FOR THIS. PT'S SPOUSE TO TRANSPORT HOME AT DISCHARGE. CM NOTIFIED AVIS BE OF PT AND FAMILY REQUEST. CM CALLED [facility], , LEFT MESSAGE ASKING FOR RETURN CALL IN REGARD TO REHAB REFERRAL. CM FAXED REFERRAL FOR OUTPATIENT REHAB SERVICES TO [facility] AT [phone]. [facility] TO CONTACT PT VIA PHONE TO ARRANGE OUTPATIENT REHAB THERAPY SERVICES. FAMILY TO TRANSPORT HOME. CM TO FOLLOW AND ASSIST NEEDED. Chief Building Inspector: Marquis Patton SDPIA - Discharge Planning Initial Assessment Updated by [id number]: Marquis Patton on 04/03/18 11:51 am * Is the patient Alert and Oriented? Yes * How many steps to enter\\exit or inside your home? 0--I * PCP [facility] JOY IN [facility], LAST SEEN 09/2017 DR. ALVAREZ IN [place], FIRST APPT 05/2018 * Pharmacy [facility] IN [place] * Preadmission Environment Home with Family * ADLs Independent * Equipment None * Other Equipment NO MEDICAL EQUIPMENT PROVIDER PREFERENCE * List name and contact numbers for known caregivers / representatives who currently or will assist patient after discharge: MELISSA BRAVO, SPOUSE, CARLEE MOJICA, DTR, * Verbal permission to speak to the caregivers and representatives has been obtained from the patient. Yes * Community resources currently utilized None * Please name any agencies selected above. NONE * Additional services required to return to the preadmission environment? No * Can the patient safely return to the preadmission environment? Yes * Has this patient been hospitalized within the prior 30 days at any hospital? No Last DP export: 04/03/18 10:54 a Patient Name: LAURI BRAVO Page 98069 at 1202 All edits/amendments must be made on the electronic document DICTATION DATE: 04/03/181201 SMT MACHINE OPERATOR: KAYLEE 04/03/181201 RPT#: [id number] DC DATE: STATUS: ADM IN [facility] [address] [place] [address] END OF REPORT
--- NOTE | 2018-04-03 12:11 | MORECARE ---
CASE MANAGEMENT DISCHARGE SUMMARY PATIENT: LAURI BRAVO UNIT: [id number] ADM DATE: 03/31/18 AGE: 67 : 48 SEX: M ROOM/BED: D.9995 AUTHOR: FRIDA,DOC PHYSICIAN: REFERRING PHYSICIAN: VINICIUS SOSA MD DATE OF SERVICE: 04/03/18 Discharge Plan Patient Name: LAURI BRAVO Facility: [facility]:[place] : 1950 Planned Disposition: Outpatient PT\\OT Anticipated Discharge Date: 04/04/18 Discharge Date: Expected LOS: 4 Initial Reviewer: [email or web address] Initial Review Date: 04/03/2018 Generated: 04/03/18 1:11 pm Comments DCP- Discharge Planning Updated by [email or web address]: Marquis Patton on 04/03/18 11:[address] Patient Name: LAURI BRAVO Admission Status: ER Accout number: [id number] Admission Date: 03-31-2018 : 1950 Admission Diagnosis: Attending: VINICIUS SOSA Current LOS: 3 Anticipated DC Date: 04-04-2018 Planned Disposition: Outpatient PT\\OT Primary Insurance: MEDICARE A & B PLANNED EXTERNAL [facility] Discharge Planning Comments: CM RECEIVED REQUEST TO SPEAK TO PT AND FAMILY 04-02-18. ON 04-03-18, CM MET WITH PT AND SPOUSE IN ROOM TO DISCUSS DISCHARGE PLANNING AND NEEDS. CM APOLOGIZED FOR NOT BEING ABLE TO SEE THEM ON 04-02. LAURI BRAVO provided verbal consent to discuss current and ongoing needs with/in the presence of: SPOUSE, MELISSA. PT REPORTS LIVING AT HOME INDEPENDENTLY WITH SPOUSE. PT HAS NO MEDICAL EQUIPMENT AND NO OUTSIDE SERVICES ASSISTING IN THE HOME. CM DISCUSSED AVAILABILITY OF HOME HEALTH, REHAB SERVICES AND MEDICAL EQUIPMENT. PT'S SPOUSE REPORTS THAT PT HAS DONE NOTHING FOR THE PAST 4 MONTHS EXCEPT LAY IN THE BED. SPOUSE STATES THAT PT WILL GET UP DAILY, WALK UPSTAIRS TO PLAY GAMES ON HIS COMPUTER BUT IS DOING "NOTHING ELSE". SPOUSE REPORTS SHE WANTS PT IN SKILLED OR INPATIENT REHAB. PT DECLINES PLACEMENT. PT'S SPOUSE ASKED ABOUT TAKING PT TO THE [facility] FOR REHAB. PT IS AGREEABLE FOR THIS. PT'S SPOUSE TO TRANSPORT HOME AT DISCHARGE. CM NOTIFIED AVIS BE OF PT AND FAMILY REQUEST. CM CALLED [facility], , LEFT MESSAGE ASKING FOR RETURN CALL IN REGARD TO REHAB REFERRAL. CM FAXED REFERRAL FOR OUTPATIENT REHAB SERVICES TO [facility] AT [phone]. [facility] TO CONTACT PT VIA PHONE TO ARRANGE OUTPATIENT REHAB THERAPY SERVICES. FAMILY TO TRANSPORT HOME. CM TO FOLLOW AND ASSIST NEEDED. Shank Taper: Marquis Patton DCPIA - Discharge Planning Initial Assessment Updated by [email or web address]: Marquis Patton on 04/03/18 11:51 am * Is the patient Alert and Oriented? Yes * How many steps to enter\\exit or inside your home? 0--I * PCP DR. JOY IN [facility], LAST SEEN 09/2017 DR. ALVAREZ IN [place], FIRST APPT 05/2018 * Pharmacy [facility] IN [place] * Preadmission Environment Home with Family * ADLs Independent * Equipment None * Other Equipment NO MEDICAL EQUIPMENT PROVIDER PREFERENCE * List name and contact numbers for known caregivers / representatives who currently or will assist patient after discharge: MELISSA BRAVO, SPOUSE, CARLEE MOJICA, DTR, * Verbal permission to speak to the caregivers and representatives has been obtained from the patient. Yes * Community resources currently utilized None * Please name any agencies selected above. NONE * Additional services required to return to the preadmission environment? No * Can the patient safely return to the preadmission environment? Yes * Has this patient been hospitalized within the prior 30 days at any hospital? No External Providers External Provider: OTHER-OTHER Next Contact Date: 04/03/2018 Service Request Date: Service Type: Resolution: Reviewer: Comments: Last DP export: 04/03/18 11:02 a Patient Name: LAURI BRAVO Page 23456 at 1211 All edits/amendments must be made on the electronic document DICTATION DATE: 04/03/18 1211 A R COLLECTIONS REP: KAYLEE 04/03/18 1211 RPT#: [id number] DC DATE: STATUS: ADM IN [facility] [address] [place] [address] END OF REPORT
--- NOTE | 2018-04-03 12:26 | MORECARE ---
CASE MANAGEMENT DISCHARGE SUMMARY PATIENT: LAURI BRAVO UNIT: [id number] ADM DATE: 03/31/18 AGE: 67 : 48 SEX: M ROOM/BED: D.2960 AUTHOR: FRIDA,DOC PHYSICIAN: REFERRING PHYSICIAN: VINICIUS SOSA MD DATE OF SERVICE: 04/03/18 Discharge Plan Patient Name: LAURI BRAVO Facility: [facility]:[place] : 1950 Planned Disposition: Outpatient PT\\OT Anticipated Discharge Date: 04/04/18 Discharge Date: Expected LOS: 4 Initial Reviewer: [email or web address] Initial Review Date: 04/03/2018 Generated: 04/03/18 1:26 pm Comments DCP- Discharge Planning Updated by [email or web address]: Marquis Patton on 04/03/18 11:[address] Patient Name: LAURI BRAVO Admission Status: ER Accout number: [id number] Admission Date: 03-31-2018 : 1950 Admission Diagnosis: Attending: VINICIUS SOSA Current LOS: 3 Anticipated DC Date: 04-04-2018 Planned Disposition: Outpatient PT\\OT Primary Insurance: MEDICARE A & B PLANNED [facility]TERNAL [facility] Discharge Planning Comments: CM RECEIVED REQUEST TO SPEAK TO PT AND FAMILY 04-02-18. ON 04-03-18, CM MET WITH PT AND SPOUSE IN ROOM TO DISCUSS DISCHARGE PLANNING AND NEEDS. CM APOLOGIZED FOR NOT BEING ABLE TO SEE THEM ON 04-02. LAURI BRAVO provided verbal consent to discuss current and ongoing needs with/in the presence of: SPOUSE, MELISSA. PT REPORTS LIVING AT HOME INDEPENDENTLY WITH SPOUSE. PT HAS NO MEDICAL EQUIPMENT AND NO OUTSIDE SERVICES ASSISTING IN THE HOME. CM DISCUSSED AVAILABILITY OF HOME HEALTH, REHAB SERVICES AND MEDICAL EQUIPMENT. PT'S SPOUSE REPORTS THAT PT HAS DONE NOTHING FOR THE PAST 4 MONTHS EXCEPT LAY IN THE BED. SPOUSE STATES THAT PT WILL GET UP DAILY, WALK UPSTAIRS TO PLAY GAMES ON HIS COMPUTER BUT IS DOING "NOTHING ELSE". SPOUSE REPORTS SHE WANTS PT IN SKILLED OR INPATIENT REHAB. PT DECLINES PLACEMENT. PT'S SPOUSE ASKED ABOUT TAKING PT TO THE [facility] FOR REHAB. PT IS AGREEABLE FOR THIS. PT'S SPOUSE TO TRANSPORT HOME AT DISCHARGE. CM NOTIFIED AVIS BE OF PT AND FAMILY REQUEST. CM CALLED [facility], , LEFT MESSAGE ASKING FOR RETURN CALL IN REGARD TO REHAB REFERRAL. CM FAXED REFERRAL FOR OUTPATIENT REHAB SERVICES TO [facility] AT [phone]. [facility] TO CONTACT PT VIA PHONE TO ARRANGE OUTPATIENT REHAB THERAPY SERVICES. FAMILY TO TRANSPORT HOME. CM TO FOLLOW AND ASSIST NEEDED. Occ Therapy Asst: Marquis Patton NDPIA - Discharge Planning Initial Assessment Updated by [id number]: Marquis Patton on 04/03/18 12:25 pm * Is the patient Alert and Oriented? Yes * How many steps to enter\\exit or inside your home? 0--I * PCP DR. JOY IN [facility], LAST SEEN 09/2017 DR. ALVAREZ IN [place], FIRST APPT 05/2018 * Pharmacy [facility] IN [place] * Preadmission Environment Home with Family * ADLs Independent * Equipment None * Other Equipment NO MEDICAL EQUIPMENT PROVIDER PREFERENCE * List name and contact numbers for known caregivers / representatives who currently or will assist patient after discharge: MELISSA BRAVO, SPOUSE, CARLEE MOJICA, DTR, * Verbal permission to speak to the caregivers and representatives has been obtained from the patient. Yes * Community resources currently utilized Other * Please name any agencies selected above. [facility] * Additional services required to return to the preadmission environment? No * Can the patient safely return to the preadmission environment? Yes * Has this patient been hospitalized within the prior 30 days at any hospital? No Last DP export: 04/03/18 11:11 a Patient Name: LAURI BRAVO Page 12961 at 1226 All edits/amendments must be made on the electronic document DICTATION DATE: 04/03/181224 CROWN IRONER OPERATOR: KAYLEE 04/03/181224 RPT#: [id number] ND DATE: STATUS: ADM IN [facility] [address] [place] [address] END OF REPORT
--- NOTE | 2018-04-03 14:31 | NUR ---
Nutrition follow-up: Diet: Renal PO intake 75% of meals; pt has also been NPO for heart CAHT Wt: 160# +BM PO intake good at most meals RDN following.
[2018-04-03 15:14] VITALS: BP 98/60
[2018-04-03] MEDS ORDERED: PLAVIX75 MG PO (15:39)
[2018-04-03] MEDS ORDERED: FERROUS SULFAT325 MG PO (15:39)
[2018-04-03] MEDS ORDERED: TOPROL XL25 MG PO (15:40)
--- NOTE | 2018-04-03 16:51 | NUR ---
PT WAS STARTED ON PD. CATH NOT DRAINING WELL. DR ROWLAND HERE AND AWARE. HE GAVE INSTRUCTIONS TO PT. PT TO BE DISCHARGED HOME . PD STOPPED AND CATH CLOSED WITH STERIL APPLICATION. WILL BE DISCHARGED TODAY
--- NOTE | 2018-04-03 17:16 | NUR ---
PT DISCHARGED. IV DCD WITH TIP INTACT. TO PRIVAT E CAR PER WHEEL CHAIR.
--- NOTE | 2018-04-03 17:26 | MORECARE ---
CASE MANAGEMENT DISCHARGE SUMMARY PATIENT: LAURI BRAVO UNIT: [id number] ADM DATE: 03/31/18 AGE: 67 : 48 SEX: M ROOM/BED: D.8228 AUTHOR: FRIDA,DOC PHYSICIAN: REFERRING PHYSICIAN: VINICIUS SOSA MD DATE OF SERVICE: 04/03/18 Discharge Plan Patient Name: LAURI BRAVO Facility: [facility]:[place] : 1950 Planned Disposition: Outpatient PT\\OT Anticipated Discharge Date: 04/03/18 Discharge Date: 04/03/2018 Expected LOS: 3 Initial Reviewer: [email or web address] Initial Review Date: 04/03/2018 Generated: 04/03/18 6:26 pm Comments DCP- Discharge Planning Updated by [email or web address]: Marquis Patton on 04/03/18 11:[address] Patient Name: LAURI BRAVO Admission Status: ER Accout number: [id number] Admission Date: 03-31-2018 : 1950 Admission Diagnosis: Attending: VINICIUS SOSA Current LOS: 3 Anticipated DC Date: 04-04-2018 Planned Disposition: Outpatient PT\\OT Primary Insurance: MEDICARE A & B [facility] Discharge Planning Comments: CM RECEIVED REQUEST TO SPEAK TO PT AND FAMILY 04-02-18. ON 04-03-18, CM MET WITH PT AND SPOUSE IN ROOM TO DISCUSS DISCHARGE PLANNING AND NEEDS. CM APOLOGIZED FOR NOT BEING ABLE TO SEE THEM ON 04-02. LAURI BRAVO provided verbal consent to discuss current and ongoing needs with/in the presence of: SPOUSE, MELISSA. PT REPORTS LIVING AT HOME INDEPENDENTLY WITH SPOUSE. PT HAS NO MEDICAL EQUIPMENT AND NO OUTSIDE SERVICES ASSISTING IN THE HOME. CM DISCUSSED AVAILABILITY OF HOME HEALTH, REHAB SERVICES AND MEDICAL EQUIPMENT. PT'S SPOUSE REPORTS THAT PT HAS DONE NOTHING FOR THE PAST 4 MONTHS EXCEPT LAY IN THE BED. SPOUSE STATES THAT PT WILL GET UP DAILY, WALK UPSTAIRS TO PLAY GAMES ON HIS COMPUTER BUT IS DOING "NOTHING ELSE". SPOUSE REPORTS SHE WANTS PT IN SKILLED OR INPATIENT REHAB. PT DECLINES PLACEMENT. PT'S SPOUSE ASKED ABOUT TAKING PT TO THE [facility] FOR REHAB. PT IS AGREEABLE FOR THIS. PT'S SPOUSE TO TRANSPORT HOME AT DISCHARGE. CM NOTIFIED AVIS BE OF PT AND FAMILY REQUEST. CM CALLED [facility], , LEFT MESSAGE ASKING FOR RETURN CALL IN REGARD TO REHAB REFERRAL. CM FAXED REFERRAL FOR OUTPATIENT REHAB SERVICES TO [facility] AT [phone]. [facility] TO CONTACT PT VIA PHONE TO ARRANGE OUTPATIENT REHAB THERAPY SERVICES. FAMILY TO TRANSPORT HOME. CM TO FOLLOW AND ASSIST NEEDED. Egg Crater: Marquis Patton MDPIA - Discharge Planning Initial Assessment Updated by [email or web address]: Marquis Patton on 04/03/18 12:25 pm * Is the patient Alert and Oriented? Yes * How many steps to enter\\exit or inside your home? 0--I * PCP DR. JOY IN [facility], LAST SEEN 09/2017 DR. ALVAREZ IN [place], FIRST APPT 05/2018 * Pharmacy [facility] IN [place] * Preadmission Environment Home with Family * ADLs Independent * Equipment None * Other Equipment NO MEDICAL EQUIPMENT PROVIDER PREFERENCE * List name and contact numbers for known caregivers / representatives who currently or will assist patient after discharge: MELISSA BRAVO, SPOUSE, CARLEE MOJICA, DTR, * Verbal permission to speak to the caregivers and representatives has been obtained from the patient. Yes * Community resources currently utilized Other * Please name any agencies selected above. [facility] * Additional services required to return to the preadmission environment? No * Can the patient safely return to the preadmission environment? Yes * Has this patient been hospitalized within the prior 30 days at any hospital? No Coverage Notice Reviewer: [id number] - Marquis Patton Notice Issued Date-Time: 04/03/2018 16:45 Notice Type: IM Discharge Notice Notice Delivered To: Patient Relationship to Patient: Computer Analyst Supervisor Name: Delivery Method: HAND - Hand Delivered Bibi Days: Prior Verbal Notification: Recipient Understood Notice: Yes Recipient Signature: Yes Med Rec Note Co-signed by Attending: Coverage Notice Comment: Last DP export: 04/03/18 11:26 a Patient Name: LAURI BRAVO Page 90820 at 4856 All edits/amendments must be made on the electronic document DICTATION DATE: 04/03/181725 SENIOR PROCESS ENGINEER: KAYLEE 04/03/181725 RPT#: [id number] DC DATE:04/03/18 STATUS: DIS IN [facility] [address] [place] [address] END OF REPORT
--- NOTE | 2018-04-07 11:45 | EC ---
PATIENT:LAURI BRAVO DATE OF SERVICE: 03/31/18 SEX: M MEDICAL RECORD: [id number] DATE OF : [birth year] LOCATION:D.M2 D.211 AGE OF PATIENT: 67 ADMISSION DATE: 03/31/18 REFERRING PHYSICIAN: INTERPRETING PHYSICIAN: ANEUDY APPLE MD ECHOCARDIOGRAM REPORT ECHO CHARGES 4 ECHO COMPLETE Date: 04/02/18 CLINICAL DIAGNOSIS: [place] ECHOCARDIOGRAPHIC MEASUREMENTS (adult normal given) AC root (d.<3.7cm) 4.1 cm LV Septum d (<1.2 cm> 1.1 cm Valve Excursion 1.3 cm LV Septum (systole) 1.6 cm Left Atria (s.<4.0cm> 5.8 cm LVPW d(<1.2cm) 1.2 cm RV (d.<2.3cm) 2.5 cm LVPW (sytole) 1.3 cm LV diastole(<5.6CM) 7.3 cm MV E-F(>70mm/sec) cm LV systole 5.6 cm LVOT Diameter 2.4 cm MV exc.(>10mm) cm Est.ejection fraction (50-75%) % DOPPLER: LVIT cm/sec A 106 cm/sec E 101 cm/sec LA cm/sec RVSP 39.0 mmHg LVOT 84 cm/sec AOP1/2T m/s Asc. Ao 144 cm/sec RVOT 38 cm/sec RA cm/sec PA 78 cm/sec AV Gradient Peak 8.2 mmHg AV Mean 4.1 mmHg AV Area 2.7 cm MV Gradient Peak 4.3 mmHg MV Mean 2.3 mmHg MV Area cm COMMENTS: Licensed Psychiatric Technician: [facility] Code Number Stamper: 1 Dr. Apple TAPE# PACS Pericardial Effusion N DATE OF SERVICE: FINDINGS: 1. Left ventricular chamber size is mildly dilated. Left ventricular systolic function is mildly reduced. Overall ejection fraction in the 35% to 40% range. 2. Left atrium, right atrium, and right ventricle chamber sizes are dilated, giving 4-chamber dilatation. 3. Valvular structures have normal structure and motion. 4. Doppler interrogation reveals severe mitral regurgitation and mild tricuspid regurgitation. No other valvular insufficiency or stenosis. Pulmonary systolic ECHOCARDIOGRAM REPORT [id number] LAURI BRAVO pressure is estimated at 39 mmHg. 5. No evidence of pericardial effusion or left ventricular thrombus. TRANSINT:[id number] Voice Confirmation ID: [id number] DOCUMENT ID: [id number] ANEUDY APPLE MD at 1145 CC: [id number] DICTATION DATE: 04/02/18 1610 CLOTH DESIZING RANGE TENDER: 04/02/18 1720 DIS IN 04/03/18 [facility] [address] [place] [id number]
== END 2018-04-03 17:18 | disposition home or self-care (01) | DRG 248 ==
LOC: D.ER 17:21 → D.M2 19:28
PROVIDERS: Family Medicine; Internal Medicine Interventional Cardiology; Internal Medicine Nephrology; ADMIT Internal Medicine Nephrology
PROC: B2121ZZ Fluoroscopy of Single Coronary Artery Bypass Graft using Low Osmolar Contrast (ICD-10-PCS; 2018-04-02)
PROC: B2181ZZ Fluoroscopy of Left Internal Mammary Bypass Graft using Low Osmolar Contrast (ICD-10-PCS; 2018-04-02)
PROC: B2151ZZ Fluoroscopy of Left Heart using Low Osmolar Contrast (ICD-10-PCS; 2018-04-02)
PROC: B4101ZZ Fluoroscopy of Abdominal Aorta using Low Osmolar Contrast (ICD-10-PCS; 2018-04-02)
PROC: 02703DZ Dilation of Coronary Artery, One Artery with Intraluminal Device, Percutaneous Approach (ICD-10-PCS; principal; 2018-04-02 07:56)
PROC: 047D3DZ Dilation of Left Common Iliac Artery with Intraluminal Device, Percutaneous Approach (ICD-10-PCS; 2018-04-02 07:56)
PROC: 4A023N7 Measurement of Cardiac Sampling and Pressure, Left Heart, Percutaneous Approach (ICD-10-PCS; 2018-04-02 07:56)
DX: I21.4 Non-ST elevation (NSTEMI) myocardial infarction (principal); N18.6 End stage renal disease; E43 Unspecified severe protein-calorie malnutrition; I12.0 Hypertensive chronic kidney disease with stage 5 chronic kidney disease or end stage renal disease; E87.1 Hypo-osmolality and hyponatremia; I25.110 Atherosclerotic heart disease of native coronary artery with unstable angina pectoris; I70.212 Atherosclerosis of native arteries of extremities with intermittent claudication, left leg; D50.9 Iron deficiency anemia, unspecified; E83.42 Hypomagnesemia; E78.5 Hyperlipidemia, unspecified; K21.9 Gastro-esophageal reflux disease without esophagitis; Z68.20 Body mass index [BMI] 20.0-20.9, adult; D63.1 Anemia in chronic kidney disease

== ENCOUNTER → 2018-07-29 13:03 | Outpatient (CLI) | payer MEDICARE, OTHER ==
[2018-04-01 13:39] VITALS: BMI 20.1
[~2018-07-29 13:03] MED LIST changes: +FERROUS SULFAT325 MG PO; +HYDROCODON-ACE1 EAC7 PO; +PLAVIX75 MG PO; +TOPROL XL25 MG PO
--- NOTE | 2018-08-01 09:40 | EC ---
PATIENT:LAURI BRAVO DATE OF SERVICE: 07/29/18 SEX: M MEDICAL RECORD: [id number] DATE OF : 46 [facility] AGE OF PATIENT: 68 ADMISSION DATE: 07/29/18 REFERRING PHYSICIAN: INTERPRETING PHYSICIAN: ANEUDY APPLE MD ECHOCARDIOGRAM REPORT ECHO CHARGES 4 ECHO COMPLETE Date: 07/29/18 CLINICAL DIAGNOSIS: CARDIOMYOPATHY H/O CAD/PVD ECHOCARDIOGRAPHIC MEASUREMENTS (adult normal given) AC root (d.<3.7cm) 3.7 cm LV Septum d (<1.2 cm> 0.7 cm Valve Excursion 1.9 cm LV Septum (systole) 1.1 cm Left Atria (s.<4.0cm> 5.5 cm LVPW d(<1.2cm) 0.9 cm RV (d.<2.3cm) 2.5 cm LVPW (sytole) 1.2 cm LV diastole(<5.6CM) 8.4 cm MV E-F(>70mm/sec) cm LV systole 6.4 cm LVOT Diameter 2.2 cm MV exc.(>10mm) cm Est.ejection fraction (50-75%) % DOPPLER: LVIT cm/sec A 130 cm/sec E 65.0 cm/sec LA cm/sec RVSP 38.0 mmHg LVOT 79.0 cm/sec AOP1/2T m/s Asc. Ao 160 cm/sec RVOT 57.0 cm/sec RA cm/sec PA 105 cm/sec AV Gradient Peak 10.2 mmHg AV Mean 5.0 mmHg AV Area 1.7 cm MV Gradient Peak 8.8 mmHg MV Mean 2.4 mmHg MV Area cm COMMENTS: OP - HC Director Of The [employer] Facility: Jonathan JOHNS JERICA Printed Products Assembler: 1 Dr. Apple TAPE# PACS Pericardial Effusion N DATE OF SERVICE: 07/29/2018 FINDINGS: 1. Left ventricular chamber size is dilated. Left ventricular systolic function is markedly reduced. Overall ejection fraction 20%. 2. Left atrium is enlarged at 5.5 cm. Right atrium and right ventricular chamber sizes are as well mildly dilated. 3. Valvular structures have normal structure and motion. 4. Doppler interrogation reveals mild mitral regurgitation, mild tricuspid regurgitation, no other valvular insufficiency or stenosis. ECHOCARDIOGRAM REPORT [id number] LAURI BRAVO 5. No evidence of pericardial effusion or left ventricular thrombus. TRANSINT:[id number] Voice Confirmation ID: [id number] DOCUMENT ID: [id number] ANEUDY APPLE MD at 0940 CC: [id number] DICTATION DATE: 07/29/18 1645 MACHINING AND ASSEMBLY SUPERVISOR: 07/30/18 0405 DEP CLI 07/29/18 [place] [id number] [place] [id number]
== END | disposition home or self-care (01) ==
LOC: D.HCCARDIO 13:03
PROVIDERS: ATTEND Internal Medicine Interventional Cardiology
DX: I42.9 Cardiomyopathy, unspecified (principal)

== ENCOUNTER 2018-08-08 06:06 | Day surgery (SDC) | payer MEDICARE, OTHER ==
[2018-08-08 06:29] LABS: BASOPHILS 0.9 % (0-2); EOSINOPHILS 7.8 % (0-7); HEMATOCRIT 31.3 % (42.0-54.0); HEMOGLOBIN 10.1 g/dL (13.5-17.5); IMMATURE GRANULOCYTES 0.6 % (0-5); LYMPHOCYTES 15.2 % (15-50); MCH 32.7 pg (26.0-34.0); MCHC 32.3 g/dL (31.0-37.0); MCV 101.3 fL (80.0-100.0); MONOCYTES 9.3 % (2-11); NEUTROPHILS 66.2 % (40-80); PLATELET COUNT 196 10x3/uL (130-400); RBC 3.09 10x6/uL (4.20-6.10); RDW 14.1 % (11.5-14.5); WBC 7.8 10x3/uL (4.8-10.8)
[2018-08-08 06:53] LABS: ANION GAP 12.9 mmol/L (8-16); CALCIUM 8.8 mg/dL (8.5-10.1); CARBON DIOXIDE 31.6 mmol/L (21.0-32.0); POTASSIUM - SERUM 4.5 mmol/L (3.5-5.1)
[2018-08-08 07:14] LABS: PROTIME 12.7 SECONDS (11.6-15.0)
[2018-08-08 07:26] VITALS: BMI 19.8
[2018-08-08] MEDS ORDERED: HYDROCODON-ACE1 EAC7 PO (10:40)
--- NOTE | 2018-08-08 11:05 | NUR ---
REC'D FROM RR. FAMILY AT BEDSIDE. SCANT AMT OF BLOODY DRAINAGE ON DRESSING. ICE PACK TO SURGERY SITE. COFFEE AND FL TRAY BROUGHT TO PT.
--- NOTE | 2018-08-08 11:15 | NUR ---
CALLED NEPHROLOGY FOR GUM SCORING MACHINE OPERATOR INTEGRITY ENGINEER TO CALL OUTPATIENT UNIT.
--- NOTE | 2018-08-08 11:35 | NUR ---
TOLERATING FL DIET. FAMILY AT BEDSIDE.
--- NOTE | 2018-08-08 11:50 | NUR ---
PAGED RESPIRATORY REGARDING DOCTOR ORDER FOR INCENTIVE SPIROMETRY TO BE USED AT HOME,
--- NOTE | 2018-08-08 12:05 | NUR ---
RESPIRATORY HERE AND EXPLAINED PROPER USE OF SPIROMETER. DEMONSTRATED USE.
--- NOTE | 2018-08-08 12:20 | NUR ---
IV DC'D WITH CATHETER INTACT. WRITTEN AND VERBAL DC INST. GIVEN TO PT ALONG WITH FOLLOW-UP APPOINTMENTS AND RX. VERBALIZED UNDERSTANDING.
--- NOTE | 2018-08-08 12:25 | NUR ---
DC'D HOME WITH FAMILY VIA PRIVATE VEHICLE, STABLE AT TIME OF DC.
--- NOTE | 2018-08-08 15:16 | OP ---
PATIENT NAME: LAURI BRAVO MEDICAL RECORD: [id number] :46 LOCATION:[facility] ADMISSION DATE: SURGEON: SANDRA EDWARDS MD DATE OF OPERATION: 08/08/2018 PREOPERATIVE DIAGNOSES: Symptomatic recurrent right inguinal hernia also end-stage renal disease, on chronic peritoneal dialysis and dependence on dialysis. POSTOPERATIVE DIAGNOSES: Symptomatic recurrent right inguinal hernia also end-stage renal disease, on chronic peritoneal dialysis and dependence on dialysis. The hernia found to be a large recurrent right indirect reducible inguinal hernia. OPERATION PERFORMED: Preperitoneal repair with Kugel patch. OPERATIVE FINDINGS: A large indirect inguinal hernia and extensive adhesions to the floor of the inguinal canal, medial to the internal ring and the presence of mesh. I believe a prior plug and patch repair. SURGEON: Sandra Edwards MD ANESTHESIA: General with LMA per GOLD STAMPER. REFERRING PHYSICIAN: Dr. Andrade. PREOPERATIVE NOTE: Liban is a very nice 68-year-old white male patient with end-stage renal disease[place] peritoneal dialysis at home. He has a history of several herniorrhaphies and has had a prior right inguinal herniorrhaphy. He now presents with a reducible right inguinal hernia. He is brought to the hospital today for elective repair. He does have a functioning large left arm brachiocephalic AV fistula, which should be available for use for hemodialysis should he need it for a period of a few weeks postop. On physical examination, I note that the patient's peritoneal dialysis catheter is inserted through a site actually very near the groin. This is a 2-cuff type catheter. There is a palpable deeper cuff in the abdominal wall, actually just above the palpable hernia mesh, and the superficial cuff is about an inch external to the tunnel and has been nicely shaved off. The patient does have a history of prior catheter infection and that may be related to the shaved cuff. There is no evidence of infection at this time. DESCRIPTION OF PROCEDURE: Under anesthesia in supine position, the patient was prepped and draped in a sterile manner. I made an oblique inguinal incision, perhaps slightly above what I would have made for standard anterior repair. I opened the external oblique aponeurosis and also mobilized the cord from the external ring and elevated the external oblique aponeurosis from the underlying structures to reveal the inguinal ligament lateral to the internal ring. I then incised the internal oblique and transversus abdominis and transversalis fascia above the internal ring level and did a preperitoneal dissection. This was complicated by the dense adhesion of peritoneum to the posterior aspect of the mesh in the medial or floor area of the inguinal canal. I was able to dissect sufficiently around it; however, to develop a sufficient pocket for a mesh patch OPERATIVE REPORT [id number] LAURI BRAVO and I was able to completely dissect the indirect inguinal hernia sac from the canal and mobilize it from the cord structures for several inches superiorly. I did cause a rent in the peritoneum and this then required suture closure with a running locked 2-0 Vicryl suture. A standard bilayer Kugel patch after being rinsed with Ancef and gentamicin solution was placed in the pocket and it opened very nicely and it curved like a taco up and under the anterior abdominal wall, totally covering the internal ring to prevent recurrent herniation and also overlapped the medial edge of the scar around the prior mesh repair. The wound was infiltrated and irrigated with 0.25% Marcaine with epinephrine and the transversus abdominis and internal oblique and transversalis fascia were approximated with interrupted simple 2-0 Prolene sutures and laterally these Prolene sutures incorporated a small bite of the anterior layer of the underlying Kugel patch. These were the only sutures used to fix the position of the Kugel patch. The external oblique aponeurosis was approximated with interrupted inverted 3-0 Vicryl and Negro's fascia was closed with interrupted 3-0 Vicryl. Skin was closed with running intracuticular 4-0 Monocryl and Dermabond glue and the incision dressed with Maxorb Ag, Tegaderm, Cavilon skin prep and Maxorb AG. The catheter was not disturbed during the procedure. The catheter exit site was dressed with a Biopatch and Tegaderm and the catheter then was coiled and covered with a Medipore dressing and the transfer catheter was stabilized with a piece of Medipore tape. The patient was awakened and in stable condition returned to the recovery room. PLAN: I think the patient can go home today. He was given a prescription for Basalt 5/325 and will be scheduled to come back to see me in my office probably next week. He did have an abnormal chest x-ray this morning with some airspace disease in the left lung, probably in the lingular segment and the radiologist recommended a followup chest x-ray and possibly chest CT to rule out an underlying mass. I will have him go home with incentive spirometer and work on that every 4 hours while awake and will have his PA and lateral chest x-ray repeated when he comes back to see me at the office. Blood loss during the operation was about 5-10 cc. Sponges, instruments, and needles were accounted for. No drain was used and no surgical specimen was submitted for histopathology. A small portion of the sac was excised and discarded. TRANSINT:[id number] Voice Confirmation ID: [id number] DOCUMENT ID: [id number] SANDRA EDWARDS MD at 1516 CC: CHILO ANDRADE MD [id number] DICTATION DATE: 08/08/18 1104 HEAD FIELD HOCKEY COACH: 08/08/[address] [facility] 08/08/18 [facility] [address] [place] [address]
== END 2018-08-08 12:25 | disposition home or self-care (01) ==
LOC: D.OPS 06:06
PROVIDERS: Surgery; ATTEND Internal Medicine
DX: K40.90 Unilateral inguinal hernia, without obstruction or gangrene, not specified as recurrent (principal); N18.6 End stage renal disease; Z99.2 Dependence on renal dialysis; K66.0 Peritoneal adhesions (postprocedural) (postinfection); Z01.812 Encounter for preprocedural laboratory examination

== ENCOUNTER → 2018-08-14 10:43 | Outpatient (CLI) | payer MEDICARE, OTHER ==
[2018-08-08 07:26] VITALS: BMI 19.8
== END | disposition home or self-care (01) ==
LOC: D.RAD 10:43
PROVIDERS: ATTEND Surgery
DX: R93.89 Abnormal findings on diagnostic imaging of other specified body structures (principal)

== ENCOUNTER → 2018-09-03 11:46 | Outpatient (CLI) | payer MEDICARE, OTHER ==
[2018-08-08 07:26] VITALS: BMI 19.8
== END | disposition home or self-care (01) ==
LOC: D.CT 11:46
PROVIDERS: ATTEND Surgery
DX: R91.8 Other nonspecific abnormal finding of lung field (principal)

== ENCOUNTER 2018-10-06 17:28 | Inpatient (IN) | payer MEDICARE ==
[~2018-10-06] VITALS: Ht 190.5 cm; Wt 74.3 kg
[2018-10-06] MEDS ORDERED: OXYCONTIN10 MG (17:52)
[2018-10-06] MEDS ORDERED: METOPROLOL (17:52)
[2018-10-06] MEDS ORDERED: [UNRECOGNIZED DRUG - REMARK] (17:53)
[2018-10-06] MEDS ORDERED: LISINOPRIL2.5 MG PO (17:56)
[2018-10-06] MEDS ORDERED: TOPROL XL50 MG PO (17:57)
[2018-10-06] MEDS ORDERED: COREG 3.1253.125 MG PO (17:58)
--- NOTE | 2018-10-06 19:05 | NUR ---
PT RETURNED FROM RADIOLOGY VIA STRETCHER.
[2018-10-06 19:07] LABS: BASOPHILS 0 % (0-2); EOSINOPHILS 0.3 % (0-7); HEMATOCRIT 36.3 % (42.0-54.0); HEMOGLOBIN 12.7 g/dL (13.5-17.5); IMMATURE GRANULOCYTES 0.7 % (0-5); LYMPHOCYTES 5.3 % (15-50); MCH 32.2 pg (26.0-34.0); MCV 91.9 fL (80.0-100.0); MEAN PLATELET VOLUME 12.2 fL (7.4-10.4); MONOCYTES 11.8 % (2-11); NEUTROPHILS 81.9 % (40-80); PLATELET COUNT 68 10x3/uL (130-400); RBC 3.95 10x6/uL (4.20-6.10); RDW 15.2 % (11.5-14.5); WBC 6.1 10x3/uL (4.8-10.8)
--- NOTE | 2018-10-06 19:15 | NUR ---
PT RESTING ON BED. NO S/S OF ACUTE DISTRESS NOTED. PT REPORTS FEELING TIRED AND DENIES OTHER COMPLAINTS.
[2018-10-06 19:23] LABS: ANION GAP 13.8 mmol/L (8-16); CALCIUM 7.6 mg/dL (8.5-10.1); CARBON DIOXIDE 28.1 mmol/L (21.0-32.0); CREATININE - SERUM 7.8 mg/dL (0.6-1.3); POTASSIUM - SERUM 3.9 mmol/L (3.5-5.1)
[2018-10-06 19:26] LABS: PLATELET ESTIMATE DECREASED
[2018-10-06 19:33] LABS: TROPONIN-I 0.443 ng/mL (0.000-0.060)
[2018-10-06 20:01] VITALS: BP 90/46
--- NOTE | 2018-10-06 20:05 | NUR ---
PT RESTING ON BED. PT DENIES NEEDS AT THIS TIME. PT LIGHTS LOWERED FOR COMFORT.
--- NOTE | 2018-10-06 21:06 | NUR ---
PT SLEEPING ON BED. NO S/S OF ACUTE DISTRESS NOTED.
[2018-10-06 22:36] VITALS: BP 109/73; BMI 19.5
[2018-10-06 23:00] VITALS: BP 108/63
[2018-10-07] VITALS (24 sets, daily range): BP systolic 78–113; BP diastolic 50–74; Ht 190.5 cm; Wt 74.3 kg
[2018-10-07 01:04] LABS: PROTEIN - BODY FLUID 0.5 G/DL
--- NOTE | 2018-10-07 01:31 | NUR ---
2300 PT REASSESSMENT COMPLETED AT THIS TIME, NO DISTRESS SEEN, VSS, WILL MONITOR FOR CHANGES. 0016 PT WAS CONNECTED TO PD INFUSION SET AND APPROX. 900ML DRAINED FROM PATIENT. PT CHARLES WELL, AND DENIES COMPLAINTS AT THIS TIME. 0100 PT RESTING WITH EYES CLOSED, RESP EVEN NON LABORED, VSS WILL CONT TO MONITOR FOR CHANGES
[2018-10-07 02:23] LABS: EOS BF 2 %; MACROPHAGES BF 11 %; NEUT - BF 73 %
--- NOTE | 2018-10-07 03:35 | NUR ---
0300 PT REASSESSMENT COMPLETED AT THIS TIME, PT ADVISED THAT HIS PAIN WAS COMING BACK. VSS. WILL CONT. TO MONITOR PATIENT
[2018-10-07 04:38] LABS: BASOPHILS 0 % (0-2); EOSINOPHILS 0.5 % (0-7); HEMATOCRIT 35.6 % (42.0-54.0); HEMOGLOBIN 12.6 g/dL (13.5-17.5); IMMATURE GRANULOCYTES 0.8 % (0-5); LYMPHOCYTES 4.2 % (15-50); MCH 32.8 pg (26.0-34.0); MCHC 35.4 g/dL (31.0-37.0); MCV 92.7 fL (80.0-100.0); MEAN PLATELET VOLUME 11.9 fL (7.4-10.4); MONOCYTES 9.9 % (2-11); NEUTROPHILS 84.6 % (40-80); PLATELET COUNT 73 10x3/uL (130-400); RBC 3.84 10x6/uL (4.20-6.10); RDW 15.3 % (11.5-14.5); WBC 6.6 10x3/uL (4.8-10.8)
[2018-10-07 04:59] LABS: APTT 27.3 SECONDS (22.8-39.4); INR 1.16 (0.85-1.17); PROTIME 14.2 SECONDS (11.6-15.0)
[2018-10-07 05:21] LABS: ANION GAP 13.1 mmol/L (8-16); BILIRUBIN - TOTAL 0.55 mg/dL (0.2-1.3); CALCIUM 7.7 mg/dL (8.5-10.1); CARBON DIOXIDE 27.7 mmol/L (21.0-32.0); CREATININE - SERUM 8.4 mg/dL (0.6-1.3); MAGNESIUM - SERUM 1.4 mg/dL (1.8-2.4); PHOSPHOROUS 4.7 mg/dL (2.5-4.9); POTASSIUM - SERUM 3.8 mmol/L (3.5-5.1); PROTEIN - SERUM 4.7 g/dL (6.4-8.2); THYROID STIMULATING HORMONE 2.16 uIU/mL (0.36-3.74)
[2018-10-07 05:24] LABS: TROPONIN-I 0.481 ng/mL (0.000-0.060)
--- NOTE | 2018-10-07 07:12 | NUR ---
0500 PT RESTING WITH EYES CLOSED, VSS NO DISTRESS NOTED
--- NOTE | 2018-10-07 07:20 | NUR ---
SHIFT REPORT RECEIVED. PT ALERT AND ORIENTED. HAS SALINE LOC TO RIGHT AC. HE IS A RESERVE LEFT ARM. PT DOES PERITONEAL DIALYSIS DAILY. PT DENIES BEING ANURIC BUT STATES HE DOESN'T URINATE MUCH. PT DOES COMPLAIN OF SOME ABDOMINAL PAIN. VSS. WILL CONTINUE TO MONITOR.
--- NOTE | 2018-10-07 08:15 | NUR ---
DR ROWLAND ROUNDED ON PT. HAS PUT IN ORDERS FOR PERITONEAL DIALYSIS.
--- NOTE | 2018-10-07 09:20 | NUR ---
CALLED CONDUIT MECHANIC RENAL PHYSICIAN (DR VALLEJO) FOR LIDOCAINE CONC CLARIFICATION FOR PD ADMINISTRATION. RECEIVED INSTRUCTIONS TO ADD 1% (10ML) TO 2000 ML BAG.
[2018-10-07 10:37] LABS: APPEARANCE CLEAR (CLEAR); BACTERIA FEW /hpf (NONE SEEN); BILIRUBIN NEGATIVE (NEGATIVE); COLOR YELLOW (YELLOW); EPITHELIAL CELLS 0-5 /hpf (0-5); GLUCOSE NEGATIVE (NEGATIVE); KETONE NEGATIVE (NEGATIVE); MUCUS <1+ /lpf (NONE SEEN); NITRITE NEGATIVE (NEGATIVE); PROTEIN 2+ mg/dL (NEGATIVE); SPECIFIC GRAVITY 1.015 (1.005-1.020); UROBILINOGEN NORMAL (NORMAL); WHITE CELLS - URINE 0-5 /hpf (0-5)
--- NOTE | 2018-10-07 11:00 | NUR ---
MEDICATIONS WITH DIALYSATE BEING ADJUSTED. WILL FOLLOW UP. PT RESTING QUIETLY. VSS.
--- NOTE | 2018-10-07 12:45 | NUR ---
PT ATE ABOUT 25% OF LUNCH. FAMILY AT BEDSIDE. VSS. NO NEEDS AT THIS TIME.
--- NOTE | 2018-10-07 13:52 | NUR ---
INFUSED 1100ML OF DIALYSATE WITH ANTIBIOTICS ADDED THROUGH PERITONEAL DIALYSIS. PT TOLERATED WELL. VSS. WILL CONTINUE TO MONITOR. WILL LET DWELL FOR 6 HRS.
--- NOTE | 2018-10-07 15:00 | NUR ---
PT RESTING QUIETLY. NO DISTRESS NOTED. BED IN LOWEST POSITION. CALL LIGHT IN REACH.
--- NOTE | 2018-10-07 16:09 | NUR ---
DR EDWARDS IN WITH PT.
--- NOTE | 2018-10-07 16:55 | NUR ---
STITCH TO LEFT FOREARM REMOVED PER DR EDWARDS VERBAL ORDER.
--- NOTE | 2018-10-07 17:29 | NUR ---
PAGED DR VALLEJO.
--- NOTE | 2018-10-07 17:41 | NUR ---
DR VALLEJO STATED IT WAS OKAY FOR PT TO RECEIVE CONTRAST FOR CT OF ABDOMEN. ALSO STATED TO D/C IV FLUIDS.
--- NOTE | 2018-10-07 19:00 | NUR ---
REPORT RECIEVED, PT AAOX4, NO SIGNS OF ACUTE DISTRESS. ASSESSMENT COMPLETED, SEE FLOWSHEET. PD ACCESS IN ABDOMEN, DRESSING CDI. CALL LIGHT IN REACH, WILL CONITNUE TO MONITOR
--- NOTE | 2018-10-07 19:30 | MORECARE ---
CASE MANAGEMENT DISCHARGE SUMMARY PATIENT: LAURI BRAVO UNIT: [id number] ADM DATE: 10/06/18 AGE: 68 : 48 SEX: M ROOM/BED: D.2308 AUTHOR: RAHUL GALICIA PHYSICIAN: REFERRING PHYSICIAN: MAYUR VALLEJO MD DATE OF SERVICE: 10/07/18 Discharge Plan Patient Name: LAURI BRAVO Facility: [facility]:[place] : 1950 Planned Disposition: Home Anticipated Discharge Date: Discharge Date: Expected LOS: Initial Reviewer: [email or web address] Initial Review Date: 10/06/2018 Generated: 10/07/18 8:29 pm Patient Name: LAURI BRAVO Page [id number] at 1930 All edits/amendments must be made on the electronic document DICTATION DATE: 10/07/181928 CERTIFIED WELDING INSPECTOR: KAYLEE 10/07/181928 RPT#: [id number] DC DATE: STATUS: ADM IN [facility] [address] [place] [address] END OF REPORT
--- NOTE | 2018-10-07 19:37 | MORECARE ---
CASE MANAGEMENT DISCHARGE SUMMARY PATIENT: LAURI BRAVO UNIT: [id number] ADM DATE: 10/06/18 AGE: 68 : 48 SEX: M ROOM/BED: D.2303 AUTHOR: FRIDADOC PHYSICIAN: REFERRING PHYSICIAN: MAYUR VALLE MD DATE OF SERVICE: 10/07/18 Discharge Plan Patient Name: LAURI BRAVO Facility: [facility]:[place] : 1950 Planned Disposition: Home Anticipated Discharge Date: Discharge Date: Expected LOS: Initial Reviewer: [email or web address] Initial Review Date: 10/06/2018 Generated: 10/07/18 8:36 pm Comments DCP- Discharge Planning Updated by [email or web address]: Johana Cooney on 10/07/18 6:[address] Patient Name: LAURI BRAVO Admission Status: ER Accout number: [id number] Admission Date: 10-06-2018 : 1950 Admission Diagnosis: Attending: Mayur Valle Current LOS: 1 Anticipated DC Date: Planned Disposition: Home Primary Insurance: MEDICARE A & B Discharge Planning Comments: CM met with patient at bedside after explaining CM role and obtaining verbal consent. Patient lives at home with his Melissa where he is independent with his care and plans to return there upon discharge. Patient feels this would be a safe discharge. CM discussed availability / needs of home health and medical equipment. Patient denies any discharge needs at this time. Patient is on peritoneal dialysis daily at home. Patient states he will have his family drive him home upon discharge. CM will continue to follow and assist as needed with discharge planning / needs. Paving Foreman: Johana Cooney DCPIA - Discharge Planning Initial Assessment Updated by [email or web address]: Johana Cooney on 10/07/18 7:31 pm * Is the patient Alert and Oriented? Yes * How many steps to enter\exit or inside your home? * PCP MD Ja Silvestre * Pharmacy [facility] [place] * Preadmission Environment Home with Family * ADLs Independent * Equipment Cane * Other Equipment PD SUPPLIES * List name and contact numbers for known caregivers / representatives who currently or will assist patient after discharge: MELISSA BRAVO - SPOUSE- [phone], * Verbal permission to speak to the caregivers and representatives has been obtained from the patient. Yes * Community resources currently utilized None * Additional services required to return to the preadmission environment? No * Can the patient safely return to the preadmission environment? Yes * Has this patient been hospitalized within the prior 30 days at any hospital? No Last DP export: 10/07/18 6:30 p Patient Name: LAURI BRAVO Page [phone] at 1937 All edits/amendments must be made on the electronic document DICTATION DATE: 10/07/181935 PARTS TECHNICIAN: KAYLEE 10/07/181935 RPT#: [id number] DC DATE: STATUS: ADM IN [facility] [address] [place] [address] END OF REPORT
--- NOTE | 2018-10-07 21:00 | NUR ---
PT AAOX4, PD COMPLETED PER PROTOCOL, SEE PD FLOWSHEET. NO ACUTE DISTRESS NOTED AT THIS TIME, WILL CONTINUE TO MONITOR.
--- NOTE | 2018-10-07 23:00 | NUR ---
PT RESTING IN BED WITH NO COMPLAINTS OF ACUTE DISTRESS. PT TOLERATING PD WELL. CALL LIGHT IN REACH.
[2018-10-08] VITALS (24 sets, daily range): BP systolic 75–110; BP diastolic 30–82
--- NOTE | 2018-10-08 01:00 | NUR ---
PT RESTING IN BED, TOLERATING PD WELL, CALL LIGHT IN REACH, WILL CONTINUE TO MONITOR.
--- NOTE | 2018-10-08 03:00 | NUR ---
PT STATED HE "HAD THE URGE TO PEE, BUT IT WENT AWAY." PT AAOX4, NO FURTHER SIGNS OF ACUTE DISTRESS NOTED. VITALS STABLE, WILL CONTINUE TO MONITOR.
[2018-10-08 04:40] LABS: BASOPHILS 0.1 % (0-2); EOSINOPHILS 0.5 % (0-7); HEMATOCRIT 34.5 % (42.0-54.0); HEMOGLOBIN 11.5 g/dL (13.5-17.5); LYMPHOCYTES 4.7 % (15-50); MCH 30.8 pg (26.0-34.0); MCHC 33.3 g/dL (31.0-37.0); MCV 92.5 fL (80.0-100.0); MEAN PLATELET VOLUME 10.7 fL (7.4-10.4); MONOCYTES 9.8 % (2-11); NEUTROPHILS 83.9 % (40-80); PLATELET COUNT 83 10x3/uL (130-400); RBC 3.73 10x6/uL (4.20-6.10); RDW 15.5 % (11.5-14.5)
[2018-10-08 04:52] LABS: WBC 8.9 10x3/uL (4.8-10.8)
[2018-10-08 05:00] LABS: ANION GAP 13.1 mmol/L (8-16); CALCIUM 7.7 mg/dL (8.5-10.1); CARBON DIOXIDE 27.8 mmol/L (21.0-32.0); CREATININE - SERUM 8.9 mg/dL (0.6-1.3); POTASSIUM - SERUM 3.9 mmol/L (3.5-5.1); VANCOMYCIN - RANDOM 24.3 ug/mL (10.0-20.0)
--- NOTE | 2018-10-08 05:00 | NUR ---
PT RESTING, STATING AGAIN HE "HAD THE URGE TO PEE BUT IT WENT AWAY". AAOX4, NO SIGNS OF ACUTE DISTRESS. CALL LIGHT IN REACH.
[2018-10-08 05:14] LABS: PLATELET ESTIMATE DECREASED
--- NOTE | 2018-10-08 07:00 | NUR ---
PATIENT RESTING. AFEBRILE. SHIFT ASSESSMENT COMPLETED. CALL LIGHT WITHIN REACH. VSS. WHITE BOARD UPDATED. FISTULA WNL. PATIENT COMPLAINS OF 3/10 PAIN IN ABDOMEN. BED ALARM ON AND BED LOW AND LOCKED. WILL CONTINUE TO MONITOR
--- NOTE | 2018-10-08 09:16 | NUR ---
PATIENT TRANSFERRED TO CHAIR PER DR. ROWLAND'S ORDER. CHG BATH DONE AT THIS TIME. COMPLETE LINEN CHANGE DONE. PATIENT SITTING UP EATING BREAKFAST AT THIS TIME
--- NOTE | 2018-10-08 13:14 | NUR ---
PATIENT BP 80/60. DID NOT ADMINISTER BUPRENEX.
--- NOTE | 2018-10-08 15:30 | NUR ---
PATIENT BEING TRANSFERRED FROM CHAIR TO BED. PATIENT HAS HAD 2 BM AT THIS TIME AND LITTLE URINE. PATIENT COMPLAINS OF PAIN AT THIS TIME. VSS. WILL CONTINUE TO MONITOR.
--- NOTE | 2018-10-08 17:45 | NUR ---
patient resting. call light within reach. bed low and locked. vss. will continue to monitor
--- NOTE | 2018-10-08 19:31 | NUR ---
REPORT RECEIVED, SHIFT ASSESSMENT COMPLETED PER FLOW SHEET. PPP. RT AC PIV, PATENT, SALINE LOCKED. ATE 30% OF DINNER. ASSISSTED BACK IN BED PER PATIENT'S REQUEST. WARM BLANKETS PROVIDED. DENIES OTHER NEEDS. SEE FLOW SHEET FOR COMPLETE ASSESSMENT. CALL LIGHT WITHIN REACH. WILL CONTINUE TO MONITOR.
--- NOTE | 2018-10-08 20:00 | NUR ---
BP IN THE 80'S, PATIENT AAOX4. INFORMED BY DAY SHIFT RN THAT PHYSICIAN IS AWARE AND IS OK WITH BP IN 80'S WITH MAP 60-65. WILL CONTINUE TO MONITOR.
--- NOTE | 2018-10-08 21:06 | NUR ---
BP LOW, SCHEDULED BUPRENEX HELD ORDERED BY PHYSICIAN.
--- NOTE | 2018-10-08 23:11 | NUR ---
REASSESSMENT COMPLETED PER FLOW SHEET, SEE FOR DETAILS. NO ACUTE CHANGES NOTED. DENIES NEEDS. WILL CONTINUE TO MONITOR.
[2018-10-09] VITALS (13 sets, daily range): BP systolic 77–105; BP diastolic 44–75
--- NOTE | 2018-10-09 01:00 | NUR ---
RESTING, NO ACUTE CHANGES NOTED, DENIES NEEDS. WILL CONTINUE TO MONITOR.
--- NOTE | 2018-10-09 03:00 | NUR ---
REASSESSMENT COMPLETED PER FLOW SHEET, SEE FOR DETAILS. NO ACUTE DISTRESS NOTED. ASSISSTED WITH REPOSITIONING IN BED. DENIES OTHER NEEDS. CALL LIGHT WITHIN REACH. WILL CONTINUE TO MONITOR.
--- NOTE | 2018-10-09 05:00 | NUR ---
DENIES NEEDS AT THIS TIME, NO ACUTE CHANGES NOTED, WILL CONTINUE TO MONITOR.
--- NOTE | 2018-10-09 07:00 | NUR ---
patient resting. vss. shift assessment completed. denies needs at this time. will continue to monitor
--- NOTE | 2018-10-09 08:46 | NUR ---
Nutrition follow-up: Diet: Renal PO intake ~50-75% of meals Labs reviewed Wt: 164# +BM Pt feels a little better this morning; possible transfer to floor today. RDN following.
[2018-10-09 09:38] LABS: ANION GAP 16.7 mmol/L (8-16); CALCIUM 7.7 mg/dL (8.5-10.1); CARBON DIOXIDE 24.2 mmol/L (21.0-32.0); CREATININE - SERUM 8.9 mg/dL (0.6-1.3); POTASSIUM - SERUM 3.9 mmol/L (3.5-5.1); VANCOMYCIN - RANDOM 16.6 ug/mL (10.0-20.0)
--- NOTE | 2018-10-09 09:41 | NUR ---
called report to freddy monterroso from [facility].
[2018-10-09 09:42] LABS: HEMOGLOBIN 12.5 g/dL (13.5-17.5); MCH 31.3 pg (26.0-34.0); MCHC 33.8 g/dL (31.0-37.0); MCV 92.5 fL (80.0-100.0); MEAN PLATELET VOLUME 11.4 fL (7.4-10.4); PLATELET COUNT 86 10x3/uL (130-400); RDW 15.6 % (11.5-14.5)
[2018-10-09 09:47] LABS: WBC 19.3 10x3/uL (4.8-10.8)
[2018-10-09 09:58] LABS: LYMPHOCYTES 5 % (15-50); MONOCYTES 8 % (2-11); NEUTROPHILS 87 % (40-80); PLATELET ESTIMATE DECREASED
--- NOTE | 2018-10-09 10:41 | NUR ---
RECEIVED PT FROM ICU. PT IS AAO AND UP AD GARY. PT DENIES ANY NEEDS. NO S/S OF DISTRESS NOTED. WILL CTM.
--- NOTE | 2018-10-09 11:52 | NUR ---
NOTIFIED PHARMACY THAT WE DO NOT HAVE ACCESS TO LIDOCAINE THAT IS ORDERED AND THAT I CANNOT PERFORM PD UNTIL I RECEIVE IT. WILL CTM.
--- NOTE | 2018-10-09 19:39 | NUR ---
REPORT RECEIVED, WILL CONTINUE POC. PATIENT IS AAOX4, UP WITH ASSIST. NO S/SX OF DISTRESS NOTED. RR EVEN AND UNLABORED. PATIENT HAS LT AV FISTULA AND IV TO RT AC, PATENT, SL, DRSG C/D/I. PATIENT DENIES NEEDS AT THIS TIME. CL IN REACH, BED LOCKED AND LOWERED. WILL CTM.
[2018-10-10 00:27] VITALS: BP 95/55
--- NOTE | 2018-10-10 03:20 | NUR ---
I have reviewed this patient and I concur with the Shift Assessment completed by the Licensed Practical Nurse today this shift.
[2018-10-10 04:19] VITALS: BP 95/54
[2018-10-10 06:35] LABS: ANION GAP 13.7 mmol/L (8-16); CALCIUM 7.5 mg/dL (8.5-10.1); CARBON DIOXIDE 26.1 mmol/L (21.0-32.0); CREATININE - SERUM 9.4 mg/dL (0.6-1.3); POTASSIUM - SERUM 3.8 mmol/L (3.5-5.1)
[2018-10-10 06:43] LABS: BASOPHILS 0.1 % (0-2); EOSINOPHILS 0.6 % (0-7); HEMATOCRIT 34.5 % (42.0-54.0); HEMOGLOBIN 11.6 g/dL (13.5-17.5); IMMATURE GRANULOCYTES 1.5 % (0-5); LYMPHOCYTES 3.5 % (15-50); MCH 31.4 pg (26.0-34.0); MCHC 33.6 g/dL (31.0-37.0); MCV 93.5 fL (80.0-100.0); MEAN PLATELET VOLUME 11.3 fL (7.4-10.4); MONOCYTES 10.5 % (2-11); NEUTROPHILS 83.8 % (40-80); RBC 3.69 10x6/uL (4.20-6.10); RDW 15.6 % (11.5-14.5)
[2018-10-10 06:50] LABS: PLATELET COUNT 106 10x3/uL (130-400); WBC 12.9 10x3/uL (4.8-10.8)
--- NOTE | 2018-10-10 07:00 | NUR ---
REPORT RECEIVED. ALERT. RIGHT A/C SALINE LOCK INTACT. ABLE TO VOICE NEEDS. RESP EVEN WITHOUT LABOR. BED IN LOWEST POSITION AND LOCKED. CAREPLAN REVIEW DONE WITH SAFETY PRECAUTIONS IN PLACE. DENIES ANY CURRENT NEEDS. CL IN REACH.
[2018-10-10 08:32] VITALS: BP 86/58
[2018-10-10 11:34] VITALS: BP 84/52
[2018-10-10 16:23] VITALS: BP 86/59
[2018-10-10 16:38] LABS: MACROPHAGES BF 9 %; MESOTHELIALS BF 3 %; NEUT - BF 72 %
--- NOTE | 2018-10-10 19:30 | NUR ---
RECEIVED REPORT, WILL ASSUME CARE OF PT, PT DENIES ANY NEEDS, VISITING WITH FAMILY, PD CATH. TO R. ABDOMEN, IV-RAC-SL, [id number], BED IS LOW, SRX2, CALL LIGHT IN REACH, WILL CONTINUE PLAN OF CARE
[2018-10-10 20:00] VITALS: BP 83/42
[2018-10-11] VITALS (7 sets, daily range): BP systolic 87–120; BP diastolic 51–68
--- NOTE | 2018-10-11 02:37 | NUR ---
I have reviewed this patient and I concur with the Shift Assessment completed by the Licensed Practical Nurse today this shift.
[2018-10-11 06:22] LABS: BASOPHILS 0.1 % (0-2); EOSINOPHILS 0.3 % (0-7); HEMATOCRIT 33.1 % (42.0-54.0); HEMOGLOBIN 11.2 g/dL (13.5-17.5); IMMATURE GRANULOCYTES 2.1 % (0-5); LYMPHOCYTES 3.5 % (15-50); MCH 31.2 pg (26.0-34.0); MCHC 33.8 g/dL (31.0-37.0); MCV 92.2 fL (80.0-100.0); MEAN PLATELET VOLUME 10.9 fL (7.4-10.4); MONOCYTES 10.1 % (2-11); NEUTROPHILS 83.9 % (40-80); PLATELET COUNT 121 10x3/uL (130-400); RBC 3.59 10x6/uL (4.20-6.10); RDW 15.6 % (11.5-14.5); WBC 12.5 10x3/uL (4.8-10.8)
--- NOTE | 2018-10-11 07:00 | NUR ---
RECEIVED REPORT. ASSUMED CARE OF PATIENT. RESTING WITH EYES CLOSED. RESP EVEN AND UNLABORED. PATIENT IS SR, 85 ON TELEMETRY. NO DISTRESS. TOLERATES PD WELL PER REPORT RECEIVED FROM [facility] NURSE.
--- NOTE | 2018-10-11 11:24 | NUR ---
MEDICATED FOR PAIN AT THIS TIME. NO DISTRESS.
--- NOTE | 2018-10-11 12:12 | NUR ---
TOLERATED PD WELL AT THIS TIME. NO DISTRESS. CALL LIGHT WITHIN REACH.
--- NOTE | 2018-10-11 15:18 | NUR ---
RESTING IN BED WITH EYES CLOSED. RESP EVEN AND UNLABORED. NO DISTRESS. CALL LIGHT WITHIN REACH.
--- NOTE | 2018-10-11 18:20 | NUR ---
TOLERATING PD FLUID EXCHANGE WELL. CALL LIGHT WITHIN REACH. DENIES NEEDS. NO DISTRESS. ATTENTION TOWARD TELEVISION AT THIS TIME.
--- NOTE | 2018-10-11 19:30 | NUR ---
RECEIVED REPORT, WILL ASSUME CARE OF PT, DENIES ANY NEEDS AT THIS TIME, TELEMTRY-97 SR-PVC, IV-RAC-SL, BED IS LOW, SRX2, CALL LIGHT IN REACH, WILL CONTINUE PLAN OF CARE
--- NOTE | 2018-10-11 20:30 | NUR ---
PM MEDS GIVEN, PROVIDED FRESH ICE WATER
--- NOTE | 2018-10-12 05:17 | NUR ---
I have reviewed this patient and I concur with the Shift Assessment completed by the Licensed Practical Nurse today this shift.
[2018-10-12 05:28] LABS: BASOPHILS 0.1 % (0-2); EOSINOPHILS 0.4 % (0-7); HEMATOCRIT 33.8 % (42.0-54.0); HEMOGLOBIN 11.1 g/dL (13.5-17.5); IMMATURE GRANULOCYTES 1.7 % (0-5); LYMPHOCYTES 3.7 % (15-50); MCH 30.4 pg (26.0-34.0); MCHC 32.8 g/dL (31.0-37.0); MCV 92.6 fL (80.0-100.0); MEAN PLATELET VOLUME 10.3 fL (7.4-10.4); MONOCYTES 10.9 % (2-11); NEUTROPHILS 83.2 % (40-80); PLATELET COUNT 122 10x3/uL (130-400); RBC 3.65 10x6/uL (4.20-6.10); RDW 15.7 % (11.5-14.5)
[2018-10-12 06:04] VITALS: BP 90/54
--- NOTE | 2018-10-12 07:00 | NUR ---
RECEIVED REPORT. ASSUMED CARE OF PATIENT. CALL LIGHT WITHIN REACH. RESTING IN BED WITH EYES OPEN. DENIES NEEDS AT THIS TIME. NO DISTRESS.
[2018-10-12 08:08] VITALS: BP 97/60
--- NOTE | 2018-10-12 11:19 | NUR ---
18 GAUGE TO RIGHT AC REMOVED DUE TO LEAKING. CATHETER TIP INTACT. NO BLEEDING FROM SITE. 2X2 GAUZE APPLIED AND SECURED WITH TAPE. 20 GAUGE IV PLACED TO RIGHT WRIST X 1 STICK. GOOD BLOOD RETURN, EASY FLUSH. TAPED, DATED AND SECURED. TOLERATED IV PLACEMENT WELL. NO DISTRESS. CURRENTLY RECEIVING IV VANC AT THIS TIME.
[2018-10-12 11:40] VITALS: BP 124/70
--- NOTE | 2018-10-12 12:23 | NUR ---
PATIENT TOLERATING PD WELL. NO DISTRESS. RESTING IN BED WITH EYES OPEN. CALL LIGHT WITHIN REACH.
--- NOTE | 2018-10-12 14:15 | NUR ---
PATIENT WITH FEMALE VISITOR AT BEDSIDE. NO DISTRESS. TOLERATED VANC WELL. NO DISTRESS. CALL LIGHT WITHIN REACH.
--- NOTE | 2018-10-12 16:46 | NUR ---
RESTING WELL IN BED. CALL LIGHT WITHIN REACH. NO DISTRESS.
[2018-10-12 16:52] VITALS: BP 105/56
--- NOTE | 2018-10-12 18:17 | NUR ---
TOLERATING PD FLUID EXCHANGE WELL. NO DISTRESS. FEMALE VISITOR REMAINS AT BEDSIDE. NO DISTRESS. CALL LIGHT WITHIN REACH.
--- NOTE | 2018-10-12 19:30 | NUR ---
RECEIVED REPORT, WILL ASSUME CARE OF PT, DENIES ANY NEEDS AT THIS TIME, BED IS LOW, SRX2, CALL LIGHT IN REACH, WILL CONTINUE PLAN OF CARE
[2018-10-12 20:00] VITALS: BP 116/70
[2018-10-13] VITALS: BP 111/72
[2018-10-13 04:00] VITALS: BP 118/74
--- NOTE | 2018-10-13 04:46 | NUR ---
I have reviewed this patient and I concur with the Shift Assessment completed by the Licensed Practical Nurse today this shift.
[2018-10-13 06:44] LABS: BASOPHILS 0.1 % (0-2); EOSINOPHILS 0 % (0-7); HEMATOCRIT 33.6 % (42.0-54.0); HEMOGLOBIN 11.3 g/dL (13.5-17.5); IMMATURE GRANULOCYTES 2.2 % (0-5); LYMPHOCYTES 3.8 % (15-50); MCH 30.8 pg (26.0-34.0); MCHC 33.6 g/dL (31.0-37.0); MCV 91.6 fL (80.0-100.0); MEAN PLATELET VOLUME 10.4 fL (7.4-10.4); NEUTROPHILS 83.9 % (40-80); PLATELET COUNT 132 10x3/uL (130-400); RBC 3.67 10x6/uL (4.20-6.10); RDW 15.7 % (11.5-14.5); WBC 14.2 10x3/uL (4.8-10.8)
[2018-10-13 06:59] LABS: ANION GAP 13.1 mmol/L (8-16); CALCIUM 7.8 mg/dL (8.5-10.1); CARBON DIOXIDE 27.8 mmol/L (21.0-32.0); CREATININE - SERUM 9.9 mg/dL (0.6-1.3); PHOSPHOROUS 6.4 mg/dL (2.5-4.9); POTASSIUM - SERUM 3.9 mmol/L (3.5-5.1); VANCOMYCIN - RANDOM 23.9 ug/mL (10.0-20.0)
[2018-10-13 08:17] VITALS: BP 99/63
[2018-10-13 12:10] VITALS: BP 86/61
[2018-10-13 15:31] VITALS: BP 101/64
--- NOTE | 2018-10-13 19:00 | NUR ---
PATIENT LAYING IN BED. NO COMPLAINTS AT THIS TIME. NO DISTRESS NOTED.
[2018-10-13 20:00] VITALS: BP 108/58
--- NOTE | 2018-10-14 | NUR ---
PATIENT RECIEVING PD DIALYSIS. NO COMPLAINTS AT THIS TIME. NO DISTRESS NOTED.
[2018-10-14 04:00] VITALS: BP 119/69
[2018-10-14 04:44] LABS: BASOPHILS 0.1 % (0-2); EOSINOPHILS 0.4 % (0-7); HEMATOCRIT 34.4 % (42.0-54.0); HEMOGLOBIN 11.5 g/dL (13.5-17.5); IMMATURE GRANULOCYTES 2.3 % (0-5); LYMPHOCYTES 5.3 % (15-50); MCH 30.7 pg (26.0-34.0); MCHC 33.4 g/dL (31.0-37.0); MEAN PLATELET VOLUME 10.3 fL (7.4-10.4); MONOCYTES 10.9 % (2-11); PLATELET COUNT 151 10x3/uL (130-400); RBC 3.74 10x6/uL (4.20-6.10); RDW 15.6 % (11.5-14.5); WBC 13.7 10x3/uL (4.8-10.8)
[2018-10-14 05:07] LABS: ANION GAP 13.9 mmol/L (8-16); CALCIUM 7.8 mg/dL (8.5-10.1); CARBON DIOXIDE 28.2 mmol/L (21.0-32.0); CREATININE - SERUM 10.2 mg/dL (0.6-1.3); POTASSIUM - SERUM 4.1 mmol/L (3.5-5.1); VANCOMYCIN - RANDOM 20.2 ug/mL (10.0-20.0)
--- NOTE | 2018-10-14 07:24 | NUR ---
PATIENT LAYING ON LEFT SIDE WITH EYES CLOSED BREATHING EVENLY. IV TO THE RIGHT FOREARM AND IS SALINE LOCKED. PATIENT CARINE ANY PAIN AT THIS TIME. CALL LIGHT IS IN REACH AND BED IS IN LOW POSITION.
[2018-10-14 09:29] VITALS: BP 102/74
--- NOTE | 2018-10-14 12:26 | MORECARE ---
CASE MANAGEMENT DISCHARGE SUMMARY PATIENT: LAURI BRAVO UNIT: [id number] ADM DATE: 10/06/18 AGE: 68 : 48 SEX: M ROOM/BED: D.4254 AUTHOR: RAHUL GALICIA PHYSICIAN: REFERRING PHYSICIAN: MAYUR VALLE MD DATE OF SERVICE: 10/14/18 Discharge Plan Patient Name: LAURI BRAVO Facility: [facility]:[place] : 1950 Planned Disposition: Home Anticipated Discharge Date: 10/14/18 Discharge Date: Expected LOS: 8 Initial Reviewer: [email or web address] Initial Review Date: 10/06/2018 Generated: 10/14/18 1:26 pm Comments DCP- Discharge Planning Updated by [email or web address]: Marquis Patton on 10/14/18 11:[address] Patient Name: LAURI BRAVO Encounter No: [id number] : 1950 Primary Insurance: MEDICARE A & B Anticipated DC Date: 10-14-2018 Planned Disposition: Home DCP follow-up note: CM MET WITH PT IN ROOM TO DISCUSS DISCHARGE NEEDS AND PLANNING. CM DISCUSSED AVAILABILITY OF HOME HEALTH, REHAB SERVICES AND MEDICAL EQUIPMENT. PT DENIES DISCHARGE NEEDS. SPOUSE TO TRANSPORT HOME AT DISCHARGE. IMPORTANT MESSAGE FROM MEDICARE PROVIDED AND EXPLAINED. TOBI Pathak DCP- Discharge Planning Updated by [email or web address]: Johana Cooney on 10/07/18 6:[address] Patient Name: LAURI BRAVO Admission Status: ER Accout number: [id number] Admission Date: 10-06-2018 : 1950 Admission Diagnosis: Attending: Mayur Valle Current LOS: 1 Anticipated DC Date: Planned Disposition: Home Primary Insurance: MEDICARE A & B Discharge Planning Comments: CM met with patient at bedside after explaining CM role and obtaining verbal consent. Patient lives at home with his Melissa where he is independent with his care and plans to return there upon discharge. Patient feels this would be a safe discharge. CM discussed availability / needs of home health and medical equipment. Patient denies any discharge needs at this time. Patient is on peritoneal dialysis daily at home. Patient states he will have his family drive him home upon discharge. CM will continue to follow and assist as needed with discharge planning / needs. Clinical Case Manager: Johana Cooney DCPIA - Discharge Planning Initial Assessment Updated by [email or web address]: Johana Cooney on 10/07/18 7:31 pm * Is the patient Alert and Oriented? Yes * How many steps to enter\exit or inside your home? * PCP Emiliano Montanez MD - [facility] * Pharmacy [facility] * Preadmission Environment Home with Family * ADLs Independent * Equipment Cane * Other Equipment PD SUPPLIES * List name and contact numbers for known caregivers / representatives who currently or will assist patient after discharge: MELISSA BRAVO - SPOUSE- [phone], * Verbal permission to speak to the caregivers and representatives has been obtained from the patient. Yes * Community resources currently utilized None * Additional services required to return to the preadmission environment? No * Can the patient safely return to the preadmission environment? Yes * Has this patient been hospitalized within the prior 30 days at any hospital? No Coverage Notice Reviewer: [email or web address] Ja Patton Notice Issued Date-Time: 10/14/2018 11:00 Notice Type: IM Discharge Notice Notice Delivered To: Patient Relationship to Patient: Florist Name: Delivery Method: HAND - Hand Delivered Bibi Days: Prior Verbal Notification: Recipient Understood Notice: Yes Recipient Signature: Yes Med Rec Note Co-signed by Attending: Coverage Notice Comment: Last DP export: 10/07/18 6:37 p Patient Name: LAURI BRAVO Page [id number] at 1226 All edits/amendments must be made on the electronic document DICTATION DATE: 10/14/18 1225 FIREARMS INSPECTOR: KAYLEE 10/14/18 1225 RPT#: [id number] DC DATE: STATUS: ADM IN [address] [place] [address] END OF REPORT
== END 2018-10-14 13:26 | disposition home or self-care (01) | DRG 871 ==
LOC: D.ER 17:28 → D.ICU 19:43 → D.M2 10-08 14:16 → D.ICU 10-08 14:21 → D.M2 10-09 09:43
PROVIDERS: Emergency Medicine; Family Medicine; Internal Medicine; ADMIT Internal Medicine Nephrology; ATTEND Internal Medicine Nephrology
DX: A41.9 Sepsis, unspecified organism (principal); K65.8 Other peritonitis; N18.6 End stage renal disease; E43 Unspecified severe protein-calorie malnutrition; I12.0 Hypertensive chronic kidney disease with stage 5 chronic kidney disease or end stage renal disease; Q61.3 Polycystic kidney, unspecified; N30.00 Acute cystitis without hematuria; B96.89 Other specified bacterial agents as the cause of diseases classified elsewhere; D63.1 Anemia in chronic kidney disease

== ENCOUNTER → 2018-12-25 11:53 | Outpatient (CLI) | payer MEDICARE, OTHER ==
[2018-10-07 08:27] VITALS: BMI 20.4
[~2018-12-25 11:53] MED LIST changes: +COREG 3.1253.125 MG PO; +METOPROLOL; +OXYCONTIN10 MG; +[UNRECOGNIZED DRUG - REMARK]
== END | disposition home or self-care (01) ==
LOC: D.CT 11:53
PROVIDERS: ATTEND Surgery
DX: R91.8 Other nonspecific abnormal finding of lung field (principal)

== ENCOUNTER 2020-07-19 18:26 | Inpatient (IN) | payer MEDICARE, OTHER ==
[~2020-07-19] VITALS: Ht 190.5 cm; Wt 59.0 kg
[2020-07-19 18:58] LABS: BASOPHILS 1.2 % (0-2); EOSINOPHILS 2.9 % (0-7); HEMOGLOBIN 14.1 g/dL (13.5-17.5); LYMPHOCYTES 14.2 % (15-50); MCH 31.6 pg (26.0-34.0); MCHC 32.9 g/dL (31.0-37.0); MCV 96.2 fL (80.0-100.0); MEAN PLATELET VOLUME 8.3 fL (7.4-10.4); MONOCYTES 8.5 % (2-11); NEUTROPHILS 73.2 % (40-80); RBC 4.47 10x6/uL (4.20-6.10); RDW 17.9 % (11.5-14.5); WBC 10.4 10x3/uL (4.8-10.8)
[2020-07-19 19:01] LABS: PLATELET COUNT 182 10x3/uL (130-400)
[2020-07-19 19:16] LABS: ANION GAP 10.5 mmol/L (8-16); CALCIUM 8.1 mg/dL (8.5-10.1); CARBON DIOXIDE 29.6 mmol/L (21.0-32.0); CREATININE - SERUM 7.4 mg/dL (0.6-1.3); POTASSIUM - SERUM 3.1 mmol/L (3.5-5.1)
[2020-07-19 19:33] LABS: ALBUMIN 1.7 g/dL (3.4-5.0); BILIRUBIN - TOTAL 0.46 mg/dL (0.2-1.3); PROTEIN - SERUM 5.7 g/dL (6.4-8.2); TROPONIN-I 0.056 ng/mL (0.000-0.060)
[2020-07-19 21:24] VITALS: BP 113/64
[2020-07-19 23:28] LABS: INR 1.21 (0.85-1.17); PROTIME 14.2 SECONDS (11.6-15.0)
[2020-07-19 23:47] VITALS: BP 113/64; BMI 16.2
[2020-07-20] VITALS (7 sets, daily range): BP systolic 85–104; BP diastolic 48–68; Ht 190.5 cm; Wt 59.0 kg
--- NOTE | 2020-07-20 00:04 | NUR ---
RECIEVED REPORT FROM ER. ARRIVED TO FLOOR ON STRETCHER. ALERT AND ORIENTED X4. UP WITH ASSIST. C/O WEAKNESS. DENIES ANY NEEDS AT THIS TIME. ASSESSMENT COMPLETED.
[2020-07-20 08:25] LABS: BASOPHILS 2.7 % (0-2); EOSINOPHILS 4.9 % (0-7); HEMOGLOBIN 11.6 g/dL (13.5-17.5); LYMPHOCYTES 18.8 % (15-50); MCH 32.4 pg (26.0-34.0); MCHC 33.9 g/dL (31.0-37.0); MCV 95.6 fL (80.0-100.0); MEAN PLATELET VOLUME 7.8 fL (7.4-10.4); MONOCYTES 9.2 % (2-11); NEUTROPHILS 64.4 % (40-80); RBC 3.58 10x6/uL (4.20-6.10); RDW 17.6 % (11.5-14.5)
[2020-07-20 08:29] LABS: HEMATOCRIT 34.3 % (42.0-54.0); PLATELET COUNT 129 10x3/uL (130-400); WBC 5.6 10x3/uL (4.8-10.8)
[2020-07-20 08:33] LABS: ALBUMIN 1.3 g/dL (3.4-5.0); BILIRUBIN - TOTAL 0.38 mg/dL (0.2-1.3); CALCIUM 7.7 mg/dL (8.5-10.1); CARBON DIOXIDE 30.8 mmol/L (21.0-32.0); CREATININE - SERUM 8.1 mg/dL (0.6-1.3); MAGNESIUM - SERUM 1.8 mg/dL (1.8-2.4); PROTEIN - SERUM 4.4 g/dL (6.4-8.2)
[2020-07-20 09:05] LABS: ANION GAP 7.9 mmol/L (8-16)
[2020-07-20 09:07] LABS: POTASSIUM - SERUM 2.7 mmol/L (3.5-5.1)
--- NOTE | 2020-07-20 12:15 | NUR ---
PD EXCANGE COMPLETED WITH 1000CC OP. SPECIMEN COLLECTED AND TAKEN TO LAB. WILL MONITOR.
[2020-07-20 12:45] LABS: BILIRUBIN NEGATIVE (NEGATIVE); KETONE NEGATIVE (NEGATIVE); NITRITE NEGATIVE (NEGATIVE); UROBILINOGEN NORMAL mg/dL (< 2)
[2020-07-20 12:50] LABS: BACTERIA FEW HPF (NONE SEEN); SQUAMOUS EPITHELIAL NONE SEEN HPF (0-4); WHITE CELLS - URINE 0-5 HPF (0-1)
--- NOTE | 2020-07-20 19:30 | NUR ---
PT IN BED, AAO X 4, RESP EVEN AND UNLABORED, NO DISTRESS NOTED, CL IN REACH, SR UP X 2.
--- NOTE | 2020-07-21 04:47 | NUR ---
I have reviewed this patient and I concur with the Shift Assessment completed by the Licensed Practical Nurse today this shift.
[2020-07-21 04:57] VITALS: BP 137/71
[2020-07-21 06:48] LABS: BASOPHILS 1.4 % (0-2); EOSINOPHILS 3.6 % (0-7); HEMATOCRIT 34.3 % (42.0-54.0); HEMOGLOBIN 11.2 g/dL (13.5-17.5); IMMATURE GRANULOCYTES 0.3 % (0-5); LYMPHOCYTE ABS# 1.09 10x3/uL (1.32-3.57); LYMPHOCYTES 12.7 % (15-50); MCH 31.6 pg (26.0-34.0); MCHC 32.7 g/dL (31.0-37.0); MCV 96.9 fL (80.0-100.0); MEAN PLATELET VOLUME 9.8 fL (7.4-10.4); MONOCYTES 11.1 % (2-11); NEUTROPHIL ABS# 6.09 10x3/uL (1.78-5.38); NEUTROPHILS 70.9 % (40-80); PLATELET COUNT 128 10x3/uL (130-400); RBC 3.54 10x6/uL (4.20-6.10); RDW 17.4 % (11.5-14.5)
[2020-07-21 06:53] LABS: WBC 8.6 10x3/uL (4.8-10.8)
[2020-07-21 06:59] LABS: % SATURATION 84 % (15-55); IRON 71 ug/dl (35-150); TOTAL IRON BIND CAPACITY 84 ug/dl (260-445)
[2020-07-21 07:01] LABS: UNSAT IRON BIND CAPACITY 13 ug/dl (150-375)
[2020-07-21 07:05] LABS: ANION GAP 12.2 mmol/L (8-16); BILIRUBIN - TOTAL 0.5 mg/dL (0.2-1.3); CALCIUM 8.1 mg/dL (8.5-10.1); CARBON DIOXIDE 27.3 mmol/L (21.0-32.0); MAGNESIUM - SERUM 1.7 mg/dL (1.8-2.4); PHOSPHOROUS 2.9 mg/dL (2.5-4.9); POTASSIUM - SERUM 3.5 mmol/L (3.5-5.1); PROTEIN - SERUM 4.9 g/dL (6.4-8.2); VANCOMYCIN - RANDOM 21.6 ug/mL (10.0-20.0)
[2020-07-21 07:06] LABS: ALBUMIN 2.1 g/dL (3.4-5.0)
[2020-07-21 07:30] VITALS: BP 94/45
[2020-07-21 11:05] VITALS: BP 111/54
--- NOTE | 2020-07-21 14:09 | NUR ---
REHAB PRESCREEN HAS BEEN RECEIVED. CHART REVIEW COMPLETED. PATIENT LOOKS LIKE A GOOD CANDIDATE FOR INPATIENT REHAB, AND HE WANTS TO COME TO US. I WILL START THE ELECTRONIC SCREEN AND CALL THE FLOOR WITH A BED SOON ALL APPROVALS HAVE BEEN COMPLETED. THANK YOU FOR THIS REFERRAL. AVELINA ONEILL RN CLINICAL LIAISON, INPATIENT REHAB.
[2020-07-21 16:04] VITALS: BP 103/61
--- NOTE | 2020-07-21 18:00 | NUR ---
PATIENT ACCEPTED TO INPATIENT REHAB WHEN MD'S ARE READY TO DISCHARGE. I HAVE ALREADY RELAYED THIS INFORMATION TO RICHARD RUBIN CM. THANK YOU AGAIN FOR THIS REFERRAL. AVELINA ONEILL RN CLINICAL LIAISON, INPATIENT REHAB.
--- NOTE | 2020-07-21 18:25 | NUR ---
OT NOTE: PT COMPLETED SUPINE TO SIT WITH SBA. PT COMPLETED ADL MOB USING RW REQUIRED MIN A. PT COMPLETED DOFF/DONG GOWN WITH MIN A. PT COMPLETED FACE HYGIENE WITH SETUP AT EOB. PT REQUIRED MOD A FOR SCOOTING UP TO HEAD OF BED. 2-257 ERNSETINE MCELROY COTA
--- NOTE | 2020-07-21 19:30 | NUR ---
PT IN BED, AAO X 3, RESP EVEN AND UNLABORED, NO DISTRESS NOTED, CL IN REACH, SR UP X 2.
[2020-07-21 19:45] VITALS: BP 94/53
[2020-07-21 22:58] LABS: NEUT - BF 11 %
[2020-07-21 22:59] LABS: MACROPHAGES BF 3 %
[2020-07-21 23:40] VITALS: BP 107/49
--- NOTE | 2020-07-22 00:01 | NUR ---
PT PERITONEAL FLUID DRAINED AT THIS TIME PER MD ORDER, WILL REFILL AT 0400 PER MD ORDER.
--- NOTE | 2020-07-22 05:02 | NUR ---
I have reviewed this patient and I concur with the Shift Assessment completed by the Licensed Practical Nurse today this shift.
[2020-07-22 05:28] VITALS: BP 109/34
[2020-07-22 07:03] LABS: BASOPHILS 3.7 % (0-2); EOSINOPHILS 5.9 % (0-7); HEMATOCRIT 30.5 % (42.0-54.0); HEMOGLOBIN 10.2 g/dL (13.5-17.5); MCH 32.7 pg (26.0-34.0); MCHC 33.6 g/dL (31.0-37.0); MCV 97.2 fL (80.0-100.0); MEAN PLATELET VOLUME 8.2 fL (7.4-10.4); MONOCYTES 9.7 % (2-11); NEUTROPHILS 66.7 % (40-80); PLATELET COUNT 127 10x3/uL (130-400); RBC 3.13 10x6/uL (4.20-6.10); RDW 17.9 % (11.5-14.5)
[2020-07-22 07:04] LABS: WBC 5.7 10x3/uL (4.8-10.8)
[2020-07-22 07:12] LABS: ALBUMIN 1.9 g/dL (3.4-5.0); ANION GAP 9.8 mmol/L (8-16); BILIRUBIN - TOTAL 0.42 mg/dL (0.2-1.3); CALCIUM 7.5 mg/dL (8.5-10.1); CARBON DIOXIDE 28.8 mmol/L (21.0-32.0); CREATININE - SERUM 7.7 mg/dL (0.6-1.3); MAGNESIUM - SERUM 1.7 mg/dL (1.8-2.4); POTASSIUM - SERUM 3.6 mmol/L (3.5-5.1); PROTEIN - SERUM 4.3 g/dL (6.4-8.2); VANCOMYCIN - RANDOM 18.1 ug/mL (10.0-20.0)
[2020-07-22] MEDS ORDERED: VANCOMYCIN 1 GM/1 G1 IV (08:50)
[2020-07-22] MEDS ORDERED: GENTAMICIN SULFATE TOPICAL (08:51)
[2020-07-22 09:00] VITALS: BP 126/60
--- NOTE | 2020-07-22 13:38 | NUR ---
Nutrition Follow-up: Not eating well. Nursing reports that pt wants to eat but gets nauseated when he does; +vomiting yesterday. To go to rehab today. Diet: Regular, Nepro TID PO intake: 15% avg x 3 meals yesterday Wt: 130# (07/20) Labs noted: K+ 3.6, Ca 7.5, Mg 1.7, Alb 1.9 Meds reviewed -Encourage PO intake and honor food preferences. -Monitor wt. -RD will follow up within 3-4 days.
--- NOTE | 2020-07-22 14:10 | NUR ---
PT'S PD FINISHED AND DRESSING CHANGED. BELONGINGS PACKED AND PT TRANSFERRED TO REHAB.
--- NOTE | 2020-07-22 14:12 | MORECARE ---
CASE MANAGEMENT DISCHARGE SUMMARY PATIENT: LAURI BRAVO UNIT: [id number] ADM DATE: 07/19/20 AGE: 70 : 48 SEX: M ROOM/BED: D.2112 AUTHOR: FRIDADOC PHYSICIAN: REFERRING PHYSICIAN: KOMAL SIMMONS MD DATE OF SERVICE: 07/22/20 Case Management Discharge Planning Summary COMMENTS ENTERED DATE: 07/22/20 14:10 CT COMMENT TYPE: Discharge Planning REVIEWER: Stephanie Peterson DC assessment completed. He lives with his spouse, she is currently hospitalized for Covid. He states he is independent with his ADL's and AIDL's. States he does his own PD. Agrees to inpatient rehab at [facility], [place] signed. To DC to inpatient rehab today. DCP REVIEW SUMMARY ANTICIPATED D/C DATE: EXPECTED LOS : CASE STATUS: DCP Initiated INITIAL REVIEW: 07/22/2020 INITIAL REVIEWER: Stephanie Peterson FINAL DISCHARGE DISPOSITION: : FINAL REVIEWER: FINAL REVIEW DATE: DCP Focus Questions & Answers DCP Evaluation QUESTION: ANSWER Patient and/or caregiver agree upon recommended discharge plan? : Yes Patient's current cognitive status: : *Oriented to person, place, situation, time and present Patient's ability to cope with chronic illness : d. No chronic illness Patient gives permission to discuss discharge plans with: (name, relationship and number) : Kailyn Bravo - spouse - [phone] Does the patient have the ability to pay for or attain post discharge needs / services? : Yes Functional screen assessment: : New onset in difficulty in gait, balance, or transfer difficulties Family / Caregiver's ability to cope with chronic illness: : a. Adequate (ability to meet patient's medical needs, ensures patient attends medical appts.) Physical Status: : Mobility impaired Living Arrangements: : Home with Spouse/Significant Other Partial Dependence, assistance required for: : Ambulation / Mobility Results of this evaluation have been discussed with: : Patient Patient with capacity for self-care or can be cared for in same environment as prior to hospitalization? : No Baseline cognitive status: : *Oriented to person, place, situation, time and present Physical environment referral comments (if applicable): : Will discharge to inpatient rehab today at [facility] Medication Management: : Patient states can afford medications Pharmacy name(s): : Emiliano Montanez in [place] is PCP Does Patient have transportation to get home and to follow-up medical appointments when discharged from the hospital? : Yes Would patient like to participate in any Care Coordination programs (if applicable): : Not applicable Does the patient have electricity at home? : Yes Does the patient have running water in their house? : Yes Equipment in use: : Walker - Standard Equipment in use: : Other Equipment in use: : Cane - Single Leg Other Equipment comments: : Peritoneal Dialysis supplies Equipment agency name and contact information: : [facility] in [place], [address] Mental health screen: : No mental health history DCP Re-evaluation QUESTION: ANSWER Would patient like to participate in any Care Coordination programs (if applicable): : Not applicable PATIENT: LAURI BRAVO ENCOUNTER: [id number] MEDICAL RECORD#: [id number] ADMISSION DATE: 07/19/2020 DISCHARGE DATE: 07/22/2020 ATTENDING MD: GEORGE JENNINGS : 1951- AGE: 70 MARITAL STATUS: M DC PLAN ID: [id number] FACILITY: [facility] PRINTED ON: 07/22/20 14:12 CT All edits/amendments must be made on the electronic document DICTATION DATE: 07/22/201411 ELECTRICAL APPLIANCE PREPARER: KAYLEE 07/22/20 141 RPT#: [id number] DC DATE:07/22/20 STATUS: DIS IN [facility] [address] [place] [address] END OF REPORT
--- NOTE | 2020-07-25 15:59 | MORECARE ---
CASE MANAGEMENT DISCHARGE SUMMARY PATIENT: LAURI BRAVO UNIT: [id number] ADM DATE: 07/19/20 AGE: 70 : 48 SEX: M ROOM/BED: D.2117 AUTHOR: FRIDADOC PHYSICIAN: REFERRING PHYSICIAN: KOMAL SIMMONS MD DATE OF SERVICE: 07/25/20 Case Management Discharge Planning Summary COMMENTS ENTERED DATE: 07/22/20 14:10 CT COMMENT TYPE: Discharge Planning REVIEWER: Stephanie Peterson DC assessment completed. He lives with his spouse, she is currently hospitalized for Covid. He states he is independent with his ADL's and AIDL's. States he does his own PD. Agrees to inpatient rehab at [facility], [place] signed. To DC to inpatient rehab today. DCP REVIEW SUMMARY ANTICIPATED D/C DATE: EXPECTED LOS : CASE STATUS: DCP Initiated INITIAL REVIEW: 07/22/2020 INITIAL REVIEWER: Stephanie Peterson FINAL DISCHARGE DISPOSITION: : FINAL REVIEWER: FINAL REVIEW DATE: DCP Focus Questions & Answers DCP Evaluation QUESTION: ANSWER Patient and/or caregiver agree upon recommended discharge plan? : Yes Patient's current cognitive status: : *Oriented to person, place, situation, time and present Patient's ability to cope with chronic illness : d. No chronic illness Patient gives permission to discuss discharge plans with: (name, relationship and number) : Kailyn Bravo - spouse - [phone] Does the patient have the ability to pay for or attain post discharge needs / services? : Yes Functional screen assessment: : New onset in difficulty in gait, balance, or transfer difficulties Family / Caregiver's ability to cope with chronic illness: : a. Adequate (ability to meet patient's medical needs, ensures patient attends medical appts.) Physical Status: : Mobility impaired Living Arrangements: : Home with Spouse/Significant Other Partial Dependence, assistance required for: : Ambulation / Mobility Results of this evaluation have been discussed with: : Patient Patient with capacity for self-care or can be cared for in same environment as prior to hospitalization? : No Baseline cognitive status: : *Oriented to person, place, situation, time and present Physical environment referral comments (if applicable): : Will discharge to inpatient rehab today at [facility] Medication Management: : Patient states can afford medications Pharmacy name(s): : Emiliano Montanez in [place] is PCP Does Patient have transportation to get home and to follow-up medical appointments when discharged from the hospital? : Yes Would patient like to participate in any Care Coordination programs (if applicable): : Not applicable Does the patient have electricity at home? : Yes Does the patient have running water in their house? : Yes Equipment in use: : Walker - Standard Equipment in use: : Other Equipment in use: : Cane - Single Leg Other Equipment comments: : Peritoneal Dialysis supplies Equipment agency name and contact information: : [facility] in [place], [address] Mental health screen: : No mental health history DCP Re-evaluation QUESTION: ANSWER Would patient like to participate in any Care Coordination programs (if applicable): : Not applicable PATIENT: LAURI BRAVO ENCOUNTER: [id number] MEDICAL RECORD#: [id number] ADMISSION DATE: 07/19/2020 DISCHARGE DATE: 07/22/2020 ATTENDING MD: GEORGE JENNINGS : 1951- AGE: 70 MARITAL STATUS: M DC PLAN ID: [id number] FACILITY: [facility] PRINTED ON: 07/25/20 15:59 CT All edits/amendments must be made on the electronic document DICTATION DATE: 07/25/20 1559 DIGITAL STRATEGY MANAGER: KAYLEE 07/25/20 1559 RPT#: [id number] DC DATE:07/22/20 STATUS: DIS IN [facility] [address] [place] [address] END OF REPORT
== END 2020-07-22 14:11 | DRG 919 ==
LOC: D.ER 18:26 → D.M2 20:22
PROVIDERS: Internal Medicine; Student in an Organized Health Care Education/Training Program; ADMIT Emergency Medicine; ATTEND Emergency Medicine
DX: T85.71XA Infection and inflammatory reaction due to peritoneal dialysis catheter, initial encounter (principal); K65.9 Peritonitis, unspecified; N18.6 End stage renal disease; E43 Unspecified severe protein-calorie malnutrition; I13.2 Hypertensive heart and chronic kidney disease with heart failure and with stage 5 chronic kidney disease, or end stage renal disease; E87.1 Hypo-osmolality and hyponatremia; Q61.3 Polycystic kidney, unspecified; I50.22 Chronic systolic (congestive) heart failure; Z68.1 Body mass index [BMI] 19.9 or less, adult; Z99.2 Dependence on renal dialysis; D63.1 Anemia in chronic kidney disease; I25.10 Atherosclerotic heart disease of native coronary artery without angina pectoris; Z95.5 Presence of coronary angioplasty implant and graft; E21.3 Hyperparathyroidism, unspecified; E03.9 Hypothyroidism, unspecified; E78.5 Hyperlipidemia, unspecified; Z95.1 Presence of aortocoronary bypass graft; E87.6 Hypokalemia; Z91.81 History of falling; I95.89 Other hypotension

== ENCOUNTER 2020-07-22 14:21 | Inpatient (IN) | payer MEDICARE, OTHER ==
[~2020-07-22] VITALS: Ht 190.5 cm; Wt 65.6 kg
[~2020-07-22 14:21] MED LIST changes: +GENTAMICIN SULFATE TOPICAL; +VANCOMYCIN 1 GM/1 G1 IV
[2020-07-22 15:10] VITALS: BP 126/41; BMI 16.2
[2020-07-22 18:09] VITALS: BP 115/67
--- NOTE | 2020-07-22 19:30 | NUR ---
AWAKE AND ALERT. RESTING IN BED WITH RESPIRATIONS UNLABORED. PD CATH IN PLACE. RIGHT FOREARM SALINE LOCK IN PLACE WITH NO SIGNS OF INFILTRATION. HAS LEFT ARM FISTULA IN ARM BUT NOT IN USE AT THIS TIME. NO ACUTE DISTRESS NOTED. CALL LIGHT IN REACH.
[2020-07-23 00:07] VITALS: BP 113/58
--- NOTE | 2020-07-23 00:10 | NUR ---
PATIENT DRAINED ONLY PER PD TUBE ORDERED.
--- NOTE | 2020-07-23 04:20 | NUR ---
PATIENT FILLED WITH DIALYSATE 1.5% 2000ML ORDERED. NO DISTRESS NOTED.
--- NOTE | 2020-07-23 05:23 | NUR ---
RESTING QUIETLY. NO DISTRESS NOTED. CALL LIGHT IN REACH.
[2020-07-23 05:46] VITALS: BP 113/58
[2020-07-23 06:23] LABS: EOSINOPHILS 5.9 % (0-7); HEMATOCRIT 33.1 % (42.0-54.0); LYMPHOCYTES 11.7 % (15-50); MCH 32.3 pg (26.0-34.0); MCHC 33.2 g/dL (31.0-37.0); MCV 97.3 fL (80.0-100.0); MEAN PLATELET VOLUME 8.1 fL (7.4-10.4); MONOCYTES 12.6 % (2-11); NEUTROPHILS 63.8 % (40-80); PLATELET COUNT 111 10x3/uL (130-400); RDW 18.2 % (11.5-14.5)
[2020-07-23 06:41] LABS: ANION GAP 10.8 mmol/L (8-16); CALCIUM 7.8 mg/dL (8.5-10.1); CARBON DIOXIDE 27.3 mmol/L (21.0-32.0); CREATININE - SERUM 7.9 mg/dL (0.6-1.3); POTASSIUM - SERUM 4.1 mmol/L (3.5-5.1)
[2020-07-23 06:51] LABS: WBC 3.1 10x3/uL (4.8-10.8)
[2020-07-23 07:00] VITALS: BP 110/60
[2020-07-23 12:00] VITALS: BP 144/76
[2020-07-23 13:33] VITALS: Ht 190.5 cm; Wt 65.6 kg
--- NOTE | 2020-07-23 15:37 | NUR ---
RESTING QUIETLY ON LEFT SIDE, EYES CLOSED. NO S/S DISTRESS. EYES CLOSED. CALL LIGHT IN REACH
[2020-07-23 18:23] VITALS: BP 129/71
[2020-07-23 19:00] VITALS: BP 130/61; BP 134/65
--- NOTE | 2020-07-23 19:44 | NUR ---
RESTING IN BED, NO DISTRESS NOTED, WILL DO PD LATER THIS SHIFT, PD TUBE WITH DRESSING, DRY AND INTACT
[2020-07-24 00:35] VITALS: BP 128/47
--- NOTE | 2020-07-24 01:01 | NUR ---
RESTING IN BED, EYES CLOSED, NO DISTRESS NOTED, CONT TO MONITOR
[2020-07-24 06:42] VITALS: BP 127/39
--- NOTE | 2020-07-24 09:18 | NUR ---
RESTING QUIETLY IN BED. EYES CLOSED. HEAD OF BED AT 45 DEGREES. SIDE RAILS UP X2. CALL LIGHT IN REACH.
[2020-07-24 09:55] LABS: CREATININE - SERUM 7.9 mg/dL (0.6-1.3)
[2020-07-24 12:00] VITALS: BP 132/52
[2020-07-24 18:06] VITALS: BP 142/59
[2020-07-24 21:13] VITALS: BP 159/59
[2020-07-25 06:12] LABS: ANION GAP 9.1 mmol/L (8-16); CALCIUM 7.8 mg/dL (8.5-10.1); CARBON DIOXIDE 28.2 mmol/L (21.0-32.0); CREATININE - SERUM 8.1 mg/dL (0.6-1.3); VANCOMYCIN - RANDOM 24.9 ug/mL (10.0-20.0)
[2020-07-25 06:13] LABS: POTASSIUM - SERUM 5.3 mmol/L (3.5-5.1)
[2020-07-25 06:47] VITALS: BP 137/70
[2020-07-25 08:15] LABS: MCH 32.3 pg (26.0-34.0); MCHC 33.2 g/dL (31.0-37.0); MCV 97.2 fL (80.0-100.0); MEAN PLATELET VOLUME 8.1 fL (7.4-10.4); PLATELET COUNT 91 10x3/uL (130-400); RDW 18.5 % (11.5-14.5); WBC 4.3 10x3/uL (4.8-10.8)
[2020-07-25 12:25] VITALS: BP 136/75
[2020-07-25 14:06] LABS: EOSINOPHILS 6 % (0-7); LYMPHOCYTES 19 % (15-50); MONOCYTES 6 % (2-11); NEUTROPHILS 66 % (40-80); PLATELET ESTIMATE DECREASED; ROULEAUX OCC
--- NOTE | 2020-07-25 14:30 | NUR ---
PATIENT ADMITTS TO REHAB FROM ACUTE FLOOR. HIS PCP IS DR. PETE QUEZADA IN [facility]. DME AT HOME IS A WALKER AND A CANE. DISCHARGE PLANS ARE FOR HIM TO RETURN TO HIS HOME. WILL CONTINUE TO FOLLOW WITH PATIENT.
[2020-07-25 18:23] VITALS: BP 129/84
--- NOTE | 2020-07-25 20:08 | NUR ---
AWAKE AND ALERT. RESTING IN BED WITH RESPRIAITONS UNLABORED. RIGHT FOREARM SALINE LOCK INTACT. PD CATHETER IN PLACE. COARSE LUNG SOUNDS BIALTERALLY. LEFT AV FISTUAL INTACT (NOT IN USE).
[2020-07-26 00:01] VITALS: BP 92/51
[2020-07-26 05:37] LABS: VANCOMYCIN - RANDOM 22.4 ug/mL (10.0-20.0)
[2020-07-26 06:29] VITALS: BP 141/79
--- NOTE | 2020-07-26 06:29 | NUR ---
QUEIT HOURS. NO ACUTE CHANGES IN CONDITION THIS SHIFT. RESTING IN BED WITH NO DISTRESS NOTED.
[2020-07-26 06:34] VITALS: BP 141/79
[2020-07-26 12:10] VITALS: BP 139/55
--- NOTE | 2020-07-26 15:07 | NUR ---
Nutrition Follow-up: ESRD on PD Diet: Renal + Nepro TID PO intake: he ate 100% of breakfast meal and 50-75% of lunch meal. He states that his appetite is "fairly good." States that he DOES NOT LIKE NEPRO and asked for me to remove them from meal trays. Last BM: 07/22/20 Wt: 144# (07/25/20); Admit Wt: 130# (07/22/20) Meds noted: zofran (prn), probiotics, abx, k-dur, phoslo Labs noted: K 5.3(H), BUN 30(H), Cr 8.0(H), GFR 7(L) Skin: PU stage I x 2 R/L Recommend: -Continue current diet. Will continue to honor food preferences within diet restrictions. -Will discontinue Nepro oral nutrition supplement per patient request. -Will continue to monitor PO intake and wt trend. -RD will re-assess on 07/29/20.
[2020-07-26 17:59] VITALS: BP 150/57
--- NOTE | 2020-07-26 20:00 | NUR ---
AWAKE AND ALERT. RESTING IN BED WITH RESPIRATIONS UNLABORED. NO DISTRESS NOTED. CALL LIGHT IN REACH. PD CATHETER IN PLACE.
[2020-07-26 23:44] VITALS: BP 125/45
--- NOTE | 2020-07-27 04:58 | NUR ---
QUIET HOURS. NO ACUTE CHANGES IN CONDITION THIS SHIFT. RESTING IN BED WITH NO DISTRESS NOTED. CALL LIGHT IN REACH.
[2020-07-27 05:30] VITALS: BP 121/59
[2020-07-27 07:35] LABS: HEMATOCRIT 31.3 % (42.0-54.0); HEMOGLOBIN 10.3 g/dL (13.5-17.5); MCH 31.9 pg (26.0-34.0); MCHC 32.9 g/dL (31.0-37.0); MCV 97.1 fL (80.0-100.0); MEAN PLATELET VOLUME 8.4 fL (7.4-10.4); PLATELET COUNT 84 10x3/uL (130-400); RBC 3.22 10x6/uL (4.20-6.10); RDW 18.2 % (11.5-14.5); WBC 3.3 10x3/uL (4.8-10.8)
[2020-07-27 07:52] LABS: ANION GAP 10.4 mmol/L (8-16); CALCIUM 7.4 mg/dL (8.5-10.1); CARBON DIOXIDE 31.1 mmol/L (21.0-32.0); CREATININE - SERUM 7.8 mg/dL (0.6-1.3); MAGNESIUM - SERUM 1.5 mg/dL (1.8-2.4); POTASSIUM - SERUM 4.5 mmol/L (3.5-5.1)
--- NOTE | 2020-07-27 08:00 | NUR ---
SHIFT ASSMT COMPLETED.
[2020-07-27 11:43] VITALS: BP 96/46
[2020-07-27 12:16] LABS: EOSINOPHILS 5 % (0-7); LYMPHOCYTES 19 % (15-50); MONOCYTES 9 % (2-11); NEUTROPHILS 64 % (40-80); PLATELET ESTIMATE DECREASED
--- NOTE | 2020-07-27 15:59 | NUR ---
CARE TEAM MEETING: PATIENT IS PROGRESSING IN THERAPY. HIS TENATIVE DC DATE IS 08/07/20. WILL CONTINUE TO FOLLOW WITH PATIENT.
[2020-07-27 18:19] VITALS: BP 130/52
--- NOTE | 2020-07-27 20:05 | NUR ---
AWAKE AND ALERT. RESTING IN BED WITH RESPIRATIONS UNLABORED. PERITONNEAL CATHETER IN PLACE. HAS LEFT AV FISTULA IN PLACE BUT IS NOT IN USE AT THIS TIME. RIGHT ARM SALINE LOCK INTACT WITH NO SIGNS OF INFILTRATION.
[2020-07-28 00:02] VITALS: BP 105/49
--- NOTE | 2020-07-28 05:19 | NUR ---
QUIET HOURS. NO ACUTE CHANGES IN CONDITION THIS SHIFT. RESTING IN BED WITH RESPIRATIONS UNLABORED. NO DISTRESS NOTED. PD CATHETER IN PLACE.
[2020-07-28 05:37] VITALS: BP 102/45
[2020-07-28 06:26] VITALS: BP 102/45
--- NOTE | 2020-07-28 08:00 | NUR ---
PATIENT IS ALERT/ORIENT. BED ALARM ON. CALL LIGHT WITHIN REACH. VOICES NO NEEDS AT THIS TIME. WILL CONTINUE WITH PLAN OF CARE
--- NOTE | 2020-07-28 09:30 | NUR ---
PATIENT IN REHAB ROOM. WORKING WITH PHYSICAL THERAPIST. SCHEDULED PAIN MEDICATION GIVEN
--- NOTE | 2020-07-28 12:30 | NUR ---
DIETITION CALLED IN CONCERN OF PATIENTS DIET. NEEDING MORE PROTEIN IN DIET. DIETITION STATED THAT SHE WILL BE DONE TO TALK WITH PATIENT IN REGARDS TO SUPPLEMENTS.
[2020-07-28 12:32] VITALS: BP 99/60
--- NOTE | 2020-07-28 12:45 | NUR ---
PROTENEX GIVEN PER DIETITIAN
[2020-07-28 18:57] VITALS: BP 135/78
--- NOTE | 2020-07-28 23:35 | NUR ---
PT IN BED ASLEEP, AROUSES EASILY TO VOICE, NO NEEDS NOTED, FLUIDS/CL WITHIN REACH,
[2020-07-29] VITALS: BP 111/49
[2020-07-29 00:29] VITALS: BP 111/49
[2020-07-29 06:19] VITALS: BP 114/79
[2020-07-29 07:12] LABS: HEMATOCRIT 28.4 % (42.0-54.0); HEMOGLOBIN 9.5 g/dL (13.5-17.5); MCH 32.2 pg (26.0-34.0); MCHC 33.6 g/dL (31.0-37.0); MEAN PLATELET VOLUME 8.2 fL (7.4-10.4); PLATELET COUNT 71 10x3/uL (130-400); RBC 2.96 10x6/uL (4.20-6.10); RDW 18.4 % (11.5-14.5); WBC 2.9 10x3/uL (4.8-10.8)
--- NOTE | 2020-07-29 07:13 | NUR ---
Nutrition consult for increased protein: RDN ordered Proteinex 30 ml BID. This will provide an additional 30 gms protein/day. Ensure or Boost also ordered with meals. Thank you for the consult.
[2020-07-29 07:39] LABS: ANION GAP 8.9 mmol/L (8-16); CALCIUM 7.3 mg/dL (8.5-10.1); CARBON DIOXIDE 31.3 mmol/L (21.0-32.0); CREATININE - SERUM 7.9 mg/dL (0.6-1.3); POTASSIUM - SERUM 4.2 mmol/L (3.5-5.1)
[2020-07-29 08:28] LABS: BASOPHILS 2 % (0-2); LYMPHOCYTES 14 % (15-50); MONOCYTES 1 % (2-11); NEUTROPHILS 81 % (40-80); PLATELET ESTIMATE DECREASED
[2020-07-29 12:15] VITALS: BP 114/64
--- NOTE | 2020-07-29 13:30 | NUR ---
Nutrition Re-Assessment Diet: Regular + Ensure/Boost TID PO intake: ~50% average x last 9 meals. He ate 100% of lunch. He had dialysis and was tired at time of my visit. He states that his appetite isn't good. States that he likes scrambled eggs. Does not like Ensure/Boost and requested that I remove them from tray. Last BM: 07/28/20 Wt: 144# (07/25/20) Meds noted: megace, magox, probiotics, phoslo Labs noted: BUN 32(H), Cr 7.9(H), GFR 7(L) Skin: stage I PUs to R/L heels Estimated nutrition needs: 2000-2325kcal (30-35 Act), 80-90gms protein (1.2-1.3gms/kg), 1000mL +UOP (or per MD) Nutrition diagnosis: Altered nutrition related lab values r/t ESRD AEB medical need for PD and labs BUN 32(H), Cr 7.9(H), GFR 7(L). Nutrition goals: -PO intake =/>75% meals -Stable dry weight Recommendations/Interventions: -Continue current diet. Will continue to honor food preferences. -Discontinue oral nutrition supplement per patient request. -Recommend continue appetite stimulant as medically feasible. -RD will follow-up within 7 days.
--- NOTE | 2020-07-29 18:00 | NUR ---
ASSESSMENT COMPLETED EARLIER THIS SHIFT. PATIENT HAS TOLERATED PD PER MD ORDERS WELL TODAY- SEE FLOWSHEET- OUTPUT 1500CC & 1300CC ON EXCHANGE- NEW PD ORDERS FOR MIDNIGHT- PASSED ON TO ONCOMING SHIFT. HAS C/O SOME NAUSEA THIS SHIFT- SEE APR. PD CATH DRSG CHANGED PER PT INSTRUCTIONS. CONTINUE TO MONITOR, CONT CURRENT PLAN OF CARE.
[2020-07-29 18:08] VITALS: BP 122/64
--- NOTE | 2020-07-29 19:42 | NUR ---
AWAKE AND ALERT. RESTING IN BED WITH RESPIRATIONS UNLABORED. NO DISTRESS NOTED. PD CATHETER IN PLACE.
[2020-07-30 00:09] VITALS: BP 154/77
--- NOTE | 2020-07-30 05:07 | NUR ---
QUIET HOURS. NO ACUTE CHANGES IN CONDITION THIS SHIFT. PD CATHETER IN PLACE. RESPIRATIONS UNLABORED. CALL LIGHT IN REACH.
[2020-07-30 05:55] VITALS: BP 121/78
[2020-07-30 06:00] VITALS: BP 105/56
--- NOTE | 2020-07-30 08:00 | NUR ---
SHIFT ASSMT COMPLETED.CL IN REACH.
[2020-07-30 12:00] VITALS: BP 131/71
[2020-07-30 18:00] VITALS: BP 105/56
--- NOTE | 2020-07-30 20:16 | NUR ---
RESTING IN BED, NO DISTRESS NOTED, WATCHING TV, DENIES PAIN, CONT PD
[2020-07-31 00:04] VITALS: BP 120/69
[2020-07-31 05:46] VITALS: BP 123/67
[2020-07-31 12:00] VITALS: BP 126/58
--- NOTE | 2020-07-31 13:16 | RHP ---
PATIENT: LAURI BRAVO MEDICAL RECORD: [id number] ACCOUNT: [id number] LOCATION:[facility] D.1118 : 48 ADMISSION DATE: 07/22/20 REHABILITATION HISTORY AND PHYSICAL EXAMINATION POST ADMISSION PHYSICIAN EXAMINATION ADMITTING DIAGNOSIS: Uremic myopathy. HISTORY OF PRESENT ILLNESS: The patient is a 70-year-old gentleman who on 07/19/2020 was transferred to the ER from [facility]. He has had history of end-stage renal disease secondary to polycystic kidney disease on peritoneal dialysis. The patient was transferred because he was weak and unable to take care of himself. He had progressively gotten weaker in the prior week. He last performed his peritoneal exchange on 07/18/2020. He was so weak he could not do peritoneal dialysis. He was admitted to the acute floor for peritonitis, end-stage renal disease, hyponatremia, and hypokalemia. Nephrology was consulted and he was placed on a renal diet. The patient was placed on DVT and GI prophylaxis. Dr. Stroud noted that he was well known to her has had failure to thrive. His recent had CHI secondary to shock due to peritonitis. He grew out Staph epi and also has pneumonia. He was discharged home to complete antibiotic therapy. He started on midodrine for hypotension. He was placed on albumin. Pharmacy has been consulted to dose his vancomycin. The patient is on continuous peritoneal dialysis for 9 hours throughout the night and he has become unable to lift even the three 6 liter bags it took to hook him up. The patient's usually helps him, but she is currently in the [facility], receiving treatment for COVID. The patient is on IV antibiotics. Labs need to be monitored. He is getting peritoneal dialysis. The patient is still pretty weak. He is min assist to mod assist for his ADLs. He is requiring intensive therapy to get him back to his prior level of functioning where he can care for himself. He is going to require better pain control. It is felt that his goal can be managed here and can get him back to [place]. COMORBIDITIES: In this patient include anemia, bradycardia, coronary artery disease, cataracts, CHF, chronic pain, decreased mobility, decrease in physical functioning, decrease in walking, hyperglycemia, falls, fatigue, low albumin, low calcium, low K, hypothyroidism, malnutrition, pulmonary hypertension. PAST MEDICAL HISTORY: Significant for end-stage renal dialysis, anemia of chronic disease, secondary hyperparathyroidism, hypertension, CHF, coronary artery disease, coronary artery bypass grafting, hypothyroidism, cataracts, and pulmonary hypertension. PAST SURGICAL HISTORY: Includes cholecystectomy, coronary artery bypass grafting, appendectomy, and PD catheter placement. ALLERGIES: LIPITOR. CURRENT MEDICATIONS: He is on vancomycin a gram q.24 hours, lisinopril 2.5 mg daily, gentamicin cream to apply topically. Aspirin chewable 81 mg daily, midodrine 10 mg t.i.d., Protonix 40 mg daily, potassium 10 mEq b.i.d., OxyContin 10 mg b.i.d., Zofran ODT 4 mg q.4 hours p.r.n., Milton 5/325 one tab q.6 hours p.r.n., Coreg 3.125 mg b.i.d. with meals, and PhosLo t.i.d. HABITS: No tobacco use. HISTORY AND PHYSICAL [id number] LAURI BRAVO FAMILY HISTORY: Noncontributory. SOCIAL HISTORY: The patient was returned back home and get back to his prior level of functioning. REVIEW OF SYSTEMS: GENERAL: He does complain of wheezing and fatigue. HEENT: Denies cold, cough or congestion. CARDIOVASCULAR: Denies any chest pain. PHYSICAL EXAMINATION: VITAL SIGNS: Stable, afebrile. GENERAL: He is a well-developed gentleman in no acute distress, alert upon exam. HEENT: Normocephalic and atraumatic. Mucosa moist. NECK: Supple. No adenopathy. LUNGS: Clear at this time. No wheezing or rales. HEART: Regular rate and rhythm. ABDOMEN: Soft. He is somewhat protuberant. EXTREMITIES: No clubbing, cyanosis, or edema. NEUROLOGIC: He does have diffuse weakness. LABORATORY DATA: His white count is 3.1 H and H of 11 and 33, and platelet count is 111. His sodium is 135, potassium 4.1, BUN and creatinine of 31 and 7.9. Blood sugars was noted to be 97. ASSESSMENT: This is a 70-year-old gentleman admitted to the rehab with a working diagnosis of uremic myopathy. The patient has potential to make improvement. We instituted the following multidisciplinary therapies including, not limited to physical, occupational, respiratory, speech, nutritional services, prosthetics and orthotics. Given his complex medical condition and risks for more complications, rehabilitation services cannot be provided at a low level of care such a care home facility. PLAN: 1. Admit to [facility] for inpatient therapy to include the following disciplines; A. Physical therapy to improve gait, all transfer skills and bed mobility to independent level. B. Occupational therapy to improve activities of daily living. C. Case management to help with discharge planning and placement options. D. Nutrition to assist with nutritional needs. E. Rehabilitation nursing to assist in monitoring the patient's underlying medical conditions and to assist with any type of bowel or bladder management. 2. The patient's current medications and medical care will be continued. 3. Placed on standard fall precautions. 4. We will continue to follow with nephrology. 5. We will work on getting him back home when his is able to get out of the hospital and take care of him and he is able to ambulate without being a fall risk. TRANSINT:[id number] Voice Confirmation ID: [id number] DOCUMENT ID: [id number] 07/29/2020 Edited for yoandy JENKINS. HISTORY AND PHYSICAL [id number] LAURI BRAVO notes whether there has been none or any medical/functional change since admission: - No change since preadmission screen. ALICE attests patient continues to be appropriate for IRF: - Continues to be appropriate. KOMAL SIMMONS MD at 1316 CC: [id number] DICTATION DATE: 07/23/20 1407 COMMERCIAL REPORTER: 07/23/20 2321 ADM IN [facility] [address] [id number]
[2020-07-31 18:00] VITALS: BP 125/56
[2020-07-31 19:00] VITALS: BP 123/72
--- NOTE | 2020-07-31 22:21 | NUR ---
RESTING IN BED, NO DISTRESS NOTED, INCONT SMALL SOFT STOOL, CONT PD SCHEDULED, MONITOR SKIN, ENC PT TO TURN SIDE TO SIDE TO GET OFF HIS BACK, PT STATES THAT HE WILL BUT WILL TURN RIGHT BACK TO HIS BACK, CONT TO TEACH PT
[2020-08-01 00:07] VITALS: BP 128/68
[2020-08-01 07:50] LABS: BASOPHILS 0.4 % (0-2); EOSINOPHILS 1.4 % (0-7); HEMATOCRIT 33.5 % (42.0-54.0); HEMOGLOBIN 11.1 g/dL (13.5-17.5); LYMPHOCYTES 9.5 % (15-50); MCH 31.7 pg (26.0-34.0); MCV 95.9 fL (80.0-100.0); MEAN PLATELET VOLUME 8.1 fL (7.4-10.4); MONOCYTES 7.4 % (2-11); NEUTROPHILS 81.3 % (40-80); RBC 3.49 10x6/uL (4.20-6.10); RDW 18.3 % (11.5-14.5); WBC 5.3 10x3/uL (4.8-10.8)
[2020-08-01 07:53] LABS: PLATELET COUNT 88 10x3/uL (130-400)
[2020-08-01 07:59] LABS: ANION GAP 9.6 mmol/L (8-16); CALCIUM 8.1 mg/dL (8.5-10.1); CARBON DIOXIDE 31.4 mmol/L (21.0-32.0); CREATININE - SERUM 8.4 mg/dL (0.6-1.3)
--- NOTE | 2020-08-01 08:05 | NUR ---
PATIENT IS ALERT/ORIENT. LYING IN BED WATCHING T.V. BED ALARM ON. CALL LIGHT WITHIN REACH. VOICES NO NEEDS AT THIS TIME. WILL CONTINUE WITH PLAN OF CARE
[2020-08-01 11:42] VITALS: BP 95/59
--- NOTE | 2020-08-01 11:54 | NUR ---
PERITIONAL DIALYSIS DONE. FLUIDE COLLECTED FOR CELL COUNT DIFF, CULTURE.
--- NOTE | 2020-08-01 12:46 | NUR ---
Nutrition Follow-up: ESRD continues on PD. Diet: Regular PO intake: ~50% average x last 9 meals. He is getting smaller portions now and seems to be eating better. He is still getting Ensure on trays and states that he HATES them. He ate 25% of breakfast this AM. Was eating lunch at time of my visit. Last BM: 08/01/20 Wt: 144# (07/25/20); Admit Wt: 130# (07/22/20) Meds noted: megace, magox, phoslo Labs noted: BUN 41(H), Cr 8.4(H), GFR 7(L) Recommend continue current diet. Recommend continue appetite stimulant as medically feasible. Encouraged PO intake. RD will re-assess 08/05/20.
--- NOTE | 2020-08-01 14:00 | NUR ---
WOUND VAC CHANGED. ABDOMINAL WOUND LOWER RIGHT QUAD. 800ML DARK YELLOW DRAINAGE. CASSET CHANGED OUT
[2020-08-01 14:32] LABS: PLATELET ESTIMATE DECREASED
--- NOTE | 2020-08-01 15:39 | NUR ---
COLOSTOMY APPERATISE CHANGED. LARGE AMOUNT OF LOOSE STOOL IN COLOSTOMY BAG.
[2020-08-01 15:44] LABS: NEUT - BF 0 %
--- NOTE | 2020-08-01 17:00 | NUR ---
DR SIMMONS INTO SEE PATIENT. NEW ORDERS RECEIVED
[2020-08-01 18:04] VITALS: BP 107/74
--- NOTE | 2020-08-01 18:31 | NUR ---
I have reviewed this patient and I concur with the Shift Assessment completed by the Licensed Practical Nurse today this shift.
--- NOTE | 2020-08-01 19:32 | NUR ---
AWAKE AND ALERT. RESTING IN BED WITH NO DISTRESS NOTED. PD CATHETER IN PLACE. NO DISTRESS NOTED. CALL LIGHT IN REACH.
[2020-08-02 00:06] VITALS: BP 105/57
[2020-08-02 05:24] VITALS: BP 124/65
--- NOTE | 2020-08-02 06:20 | NUR ---
PD CATHETER DRAINED AT MIDNIGHT BUT WOULD NOT FILL THIS AM. DAYT REPOSITIONED HEAD OF BED AJSUKUMAR CHECKED FOR KINKS IN TUBING. PD FLUID LINE FLOWS WITHOUT DIFFICULTY TO ANOTHER CONTAINER BUT WILL NOT FLOW TO PD CATHETER. ZOIE QUINTERO APRN NOTIFIED. SHE STATED SHE WOULD REVIEW OPTIONS AND CALL BACK A LITTLE LATER.
[2020-08-02 11:30] VITALS: BP 96/61
[2020-08-02 18:41] VITALS: BP 119/58
--- NOTE | 2020-08-02 23:12 | NUR ---
AWAKE AND ALERT. RESTING IN BED WITH RESPIRATIONS UNLABORED. PD CATHETER IN PLACE. NO DISTRESS NOTED. CALL LIGHT IN REACH.
[2020-08-02 23:49] VITALS: BP 120/74
--- NOTE | 2020-08-03 05:10 | NUR ---
QUIET HOURS. NO ACUTE CHANGES IN CONDITION THIS SHIFT. RESTING IN BED WITH NO DISTRESS NOTED. PD CATHETER IN PLACE. NO DISTRESS NOTED.
[2020-08-03 06:00] VITALS: BP 120/74
[2020-08-03 07:24] LABS: BASOPHILS 0.2 % (0-2); EOSINOPHILS 2.1 % (0-7); HEMATOCRIT 32.8 % (42.0-54.0); HEMOGLOBIN 10.8 g/dL (13.5-17.5); MCH 31.7 pg (26.0-34.0); MCHC 32.8 g/dL (31.0-37.0); MCV 96.5 fL (80.0-100.0); MEAN PLATELET VOLUME 8.2 fL (7.4-10.4); MONOCYTES 5.6 % (2-11); NEUTROPHILS 86.1 % (40-80); RBC 3.39 10x6/uL (4.20-6.10); RDW 18.3 % (11.5-14.5)
[2020-08-03 07:35] LABS: PLATELET COUNT 110 10x3/uL (130-400); WBC 7.1 10x3/uL (4.8-10.8)
[2020-08-03 07:52] LABS: ANION GAP 11.4 mmol/L (8-16); CALCIUM 7.6 mg/dL (8.5-10.1); CARBON DIOXIDE 30.6 mmol/L (21.0-32.0); CREATININE - SERUM 8.3 mg/dL (0.6-1.3)
[2020-08-03 12:07] VITALS: BP 100/64
--- NOTE | 2020-08-03 16:02 | NUR ---
CARE TEAM MEETING: PATIENT IS PROGRESSING IN THERAPY. HE WOULD LIKE TO DISCHARGE HOME ON 08/05/20. PATIENT GAVE PERMISSION TO DISCUSS HIS CARE WITH HIS SPOUSE. WILL CONTINUE TO FOLLOW WITH PATIENT AND WILL ASSIST WITH HIS DC NEEDS.
[2020-08-03 18:42] VITALS: BP 112/65
--- NOTE | 2020-08-03 20:01 | NUR ---
RESTING IN BED, NO DISTRESS NOTED, CONT PD, MONITOR PAIN
[2020-08-04 00:15] VITALS: BP 147/62
[2020-08-04 05:28] VITALS: BP 122/57
--- NOTE | 2020-08-04 08:00 | NUR ---
SHIFT ASSMT COMPLETED.
[2020-08-04 12:15] VITALS: BP 107/61
[2020-08-04 17:56] VITALS: BP 131/77
[2020-08-04 23:41] VITALS: BP 124/73
--- NOTE | 2020-08-05 00:50 | NUR ---
AWAKE AND ALERT. RESTING IN BED WITH RESPIRAITONS UNLABORED. PD CATHETER IN PLACE. NO DISTRESS NOTED. CALL LIGHT IN REACH.
--- NOTE | 2020-08-05 02:44 | NUR ---
CALLED AND SAID HE DOSESNT FEEL WELL. BP 143/76 HEARTRATE 76 RESPIRATIONS 20 O2 SATURATION 91% . AFEBRILE AT 97.8. REPOSITIONED FPR COMFORT. PATIENT BURPED AND THEN STATED "WELL I FEEL BETTER NOW" I SAID "WELL MAYBE IT WAS JUST GAS." HE AGREED. NOW RESTING IN BED WITH NO DISTRESS NOTED.
[2020-08-05 02:47] VITALS: BP 143/76
--- NOTE | 2020-08-05 05:24 | NUR ---
RESTING IN BED. HAS SLEPT IN SHORT INTERVALS. PD CATHETER IN PLACE. HAS A SMALL INCONTINENT BM. INCONTINENCE CARE GIVEN AND LINENS CHANGED. O2/2L ON PER NASAL CANNULA. CALL LIGHT IN REACH.
[2020-08-05 05:55] VITALS: BP 136/77
[2020-08-05] MEDS ORDERED: MIDODRINE HCL5 MG PO (08:53)
[2020-08-05] MEDS ORDERED: MEGACE40 MG PO (08:54)
[2020-08-05] MEDS ORDERED: OXYCONTIN10 MG PO (08:54)
[2020-08-05] MEDS ORDERED: MAG-OX 400 MG400 MG PO (08:54)
--- NOTE | 2020-08-05 10:23 | NUR ---
PATIENT DISCHARGING HOME WITH FAMILY. [facility] WILL RESUME THERAPY AT HOME. [facility] [place] HAS DELIVERED HOME O2 AND A WHEELCHAIR TO PATIENT.ESTEBAN SIGNED, IMM SERVED AND EXPLAINED, ONE GIVEN TO PATIENT AND ONE FILED IN CHART.DR. PETE QUEZADA/SERA 08/10/20 @ 2:00, DR. PICKERING/ANICETO BONILLA WILL CALL PATIENT FOR PD CLASS. DISCHARGE INSTRUCTIONS FAXED TO PCP, HOME HEALTH AND REVIEWED WITH PATIENT.
== END 2020-08-05 13:00 | disposition home health service (06) | DRG 91 ==
LOC: D.REHAB 14:21
PROVIDERS: Internal Medicine; Internal Medicine Nephrology; ADMIT Emergency Medicine; ATTEND Emergency Medicine
DX: G72.89 Other specified myopathies (principal); N18.6 End stage renal disease; I13.2 Hypertensive heart and chronic kidney disease with heart failure and with stage 5 chronic kidney disease, or end stage renal disease; E46 Unspecified protein-calorie malnutrition; E87.1 Hypo-osmolality and hyponatremia; I50.20 Unspecified systolic (congestive) heart failure; Z99.2 Dependence on renal dialysis; D64.9 Anemia, unspecified; I25.10 Atherosclerotic heart disease of native coronary artery without angina pectoris; R26.2 Difficulty in walking, not elsewhere classified; R73.9 Hyperglycemia, unspecified; I27.20 Pulmonary hypertension, unspecified; E03.9 Hypothyroidism, unspecified; R53.83 Other fatigue; G89.29 Other chronic pain; R00.1 Bradycardia, unspecified; H26.9 Unspecified cataract; E83.51 Hypocalcemia; E87.6 Hypokalemia

== ENCOUNTER 2020-08-09 15:36 | Inpatient (IN) | payer MEDICARE, OTHER ==
[~2020-08-09] VITALS: Ht 190.5 cm; Wt 72.1 kg
[~2020-08-09 15:36] MED LIST changes: +MAG-OX 400 MG400 MG PO; +MEGACE40 MG PO; +MIDODRINE HCL5 MG PO; +OXYCONTIN10 MG PO
[2020-08-09 16:34] LABS: BASOPHILS 0.8 % (0-2); EOSINOPHILS 0.2 % (0-7); HEMATOCRIT 32.9 % (42.0-54.0); HEMOGLOBIN 10.8 g/dL (13.5-17.5); LYMPHOCYTES 8.7 % (15-50); MCHC 32.9 g/dL (31.0-37.0); MCV 97.1 fL (80.0-100.0); MEAN PLATELET VOLUME 8.8 fL (7.4-10.4); MONOCYTES 7.1 % (2-11); NEUTROPHILS 83.2 % (40-80); RBC 3.38 10x6/uL (4.20-6.10); RDW 18.3 % (11.5-14.5); WBC 7.9 10x3/uL (4.8-10.8)
[2020-08-09 16:43] LABS: ANION GAP 13.9 mmol/L (8-16); CALCIUM 7.9 mg/dL (8.5-10.1); CARBON DIOXIDE 29.3 mmol/L (21.0-32.0); CREATININE - SERUM 9.2 mg/dL (0.6-1.3); POTASSIUM - SERUM 5.2 mmol/L (3.5-5.1)
[2020-08-09 16:50] LABS: ALBUMIN 1.8 g/dL (3.4-5.0); BILIRUBIN - TOTAL 0.81 mg/dL (0.2-1.3); PROTEIN - SERUM 5.9 g/dL (6.4-8.2)
[2020-08-09 17:12] LABS: PLATELET COUNT 151 10x3/uL (130-400)
[2020-08-09 18:31] VITALS: BP 136/79
--- NOTE | 2020-08-09 18:46 | NUR ---
ARRIVED AT ER D/T CONFUSION AND DURING THAT CONFUSTION, CUT HIS DIALYSIS LINE ON ABDOMEN YESTERDAY. VS 66, 97% ON 3L/MIN VIA NC, /
[2020-08-09 19:00] VITALS: BP 126/72
--- NOTE | 2020-08-09 19:45 | NUR ---
PT RESTING IN SUPINE POSITION, RESPIRATIONS EVEN AND NON LABORED. CALL LIGHT WITHIN REACH, DENIES CURRENT NEEDS.
[2020-08-09 21:00] VITALS: BP 107/65
--- NOTE | 2020-08-09 21:33 | NUR ---
PT BACK FROM ORDERED IMAGING AT THIS TIME.
--- NOTE | 2020-08-09 21:44 | NUR ---
WARM BLANKET PROVIDED FOR COMFORT
[2020-08-09 23:00] VITALS: BP 107/60
--- NOTE | 2020-08-10 | NUR ---
PT OFF OF VISCOSITY INSPECTOR. ONCE IN ROOM, PT IS TAKING HIS OXYGEN OFF, AND STATING HE NEEDS HELP. HE STATES HE DOESN'T KNOW WHAT IS HAPPENING. THIS NURSE REORIENTED PT, PLACED VITAL SIGNS MACHINE AND VISCOSITY INSPECTOR. PT SAYS THANK YOU. CALL LIGHT REMAINS IN REACH, REEDUCATED ON USE.
[2020-08-10 01:00] VITALS: BP 131/75
[2020-08-10 03:00] VITALS: BP 125/67
[2020-08-10 05:00] VITALS: BP 124/75
[2020-08-10 07:39] VITALS: BP 139/69
[2020-08-10 07:47] LABS: BASOPHILS 0.9 % (0-2); EOSINOPHILS 0.3 % (0-7); HEMOGLOBIN 10.3 g/dL (13.5-17.5); LYMPHOCYTES 10.4 % (15-50); MCH 31.9 pg (26.0-34.0); MCHC 32.2 g/dL (31.0-37.0); MEAN PLATELET VOLUME 8.3 fL (7.4-10.4); MONOCYTES 9.8 % (2-11); NEUTROPHILS 78.6 % (40-80); RBC 3.23 10x6/uL (4.20-6.10); RDW 17.9 % (11.5-14.5)
[2020-08-10 08:11] LABS: ALBUMIN 1.6 g/dL (3.4-5.0); ANION GAP 16.3 mmol/L (8-16); BILIRUBIN - TOTAL 0.71 mg/dL (0.2-1.3); CALCIUM 7.6 mg/dL (8.5-10.1); CREATININE - SERUM 9.5 mg/dL (0.6-1.3); POTASSIUM - SERUM 5.3 mmol/L (3.5-5.1); PROTEIN - SERUM 5.1 g/dL (6.4-8.2); TROPONIN-I 0.068 ng/mL (0.000-0.060); VANCOMYCIN - RANDOM 33.7 ug/mL (10.0-20.0)
[2020-08-10 08:28] LABS: MCV 99.3 fL (80.0-100.0); PLATELET COUNT 102 10x3/uL (130-400)
--- NOTE | 2020-08-10 09:10 | NUR ---
AWAKE AND ALERT THIS AM- ORIENTATED X3 AT PRESENT. DENIES ANY COMPLAINTS AT PRESENT. BED IN LOW POSITION WITH SR UP X2.
--- NOTE | 2020-08-10 12:07 | NUR ---
CALLED DR VASQUEZ TO ENSURE HE HAD SEEN THE CT SCAN RESULTS- VOICED KNOWING THE RESULTS AND NO FURTHER ORDERS AT THIS TIME.
[2020-08-10 14:48] VITALS: BMI 16.2
[2020-08-10 15:11] VITALS: Ht 190.5 cm; Wt 72.1 kg
--- NOTE | 2020-08-10 17:22 | NUR ---
NURSE CALLS JUAN MANUEL ABOUT PATIENT BEING VERY ANGRY, COMBATIVE, VERBALLY AGRESSIVE. HE ALMOST BROKE THE BP TUBING, THE WAS SWATTING AT NURSE. WANTS TO GO HOME. SAYS WE ARE KEEPING HIM HERE AGAINST HIS WILL. NURSE GETS ORDER FROM JUAN MANUEL FOR CARLO BLEVINS.
--- NOTE | 2020-08-10 17:31 | NUR ---
NURSE GIVES PATIENT IM INJECTION OF HALDOL.
[2020-08-10 17:34] VITALS: BP 144/77
--- NOTE | 2020-08-10 19:30 | NUR ---
PT CONFUSED TRYING TO GET OUT OF BED AT THIS TIME, AAO X1, RESP EVEN AND UNLABORED, NO DISTRESS NOTED. CL IN REACH, SR UP X 2.
--- NOTE | 2020-08-10 21:00 | NUR ---
PT CONFUSED, PULLED IV OUT OF RIGHT FOREARM, REPLACED IV TO RIGHT FOREARM WITH 22G SL AT THIS TIME.
[2020-08-11 03:05] VITALS: BP 176/83
--- NOTE | 2020-08-11 04:00 | NUR ---
PT CONFUSED AT THIS TIME, PT PULLED 22G SL OUT OF RIGHT FOREARM AT THIS TIME.
--- NOTE | 2020-08-11 04:05 | NUR ---
I have reviewed this patient and I concur with the Shift Assessment completed by the Licensed Practical Nurse today this shift.
[2020-08-11 05:06] LABS: MACROPHAGES BF 4 %
[2020-08-11 05:07] LABS: NEUT - BF 83 %
[2020-08-11 06:27] LABS: BASOPHILS 0.1 % (0-2); EOSINOPHILS 0 % (0-7); HEMOGLOBIN 9.5 g/dL (13.5-17.5); LYMPHOCYTES 5.7 % (15-50); MCH 31.7 pg (26.0-34.0); MCHC 32.9 g/dL (31.0-37.0); MEAN PLATELET VOLUME 8.8 fL (7.4-10.4); MONOCYTES 4.8 % (2-11); NEUTROPHILS 89.4 % (40-80); PLATELET COUNT 115 10x3/uL (130-400); RDW 17.8 % (11.5-14.5); WBC 7.5 10x3/uL (4.8-10.8)
--- NOTE | 2020-08-11 06:30 | NUR ---
RECEIVED BEDSIDE REPORT. RESP EVEN AND UNLABORED ON 2L. REPORTED PATIENT HAD NO IV FOR PULLING THEM OUT.
[2020-08-11 06:51] LABS: MCV 96.5 fL (80.0-100.0)
[2020-08-11 06:55] LABS: ALBUMIN 1.8 g/dL (3.4-5.0); BILIRUBIN - TOTAL 0.91 mg/dL (0.2-1.3); CALCIUM 7.8 mg/dL (8.5-10.1); CARBON DIOXIDE 25.6 mmol/L (21.0-32.0); MAGNESIUM - SERUM 2.5 mg/dL (1.8-2.4); PHOSPHOROUS 3.5 mg/dL (2.5-4.9); VANCOMYCIN - RANDOM 15.6 ug/mL (10.0-20.0)
[2020-08-11 07:13] LABS: ANION GAP 18.8 mmol/L (8-16); CREATININE - SERUM 6.8 mg/dL (0.6-1.3); POTASSIUM - SERUM 4.4 mmol/L (3.5-5.1)
--- NOTE | 2020-08-11 07:30 | NUR ---
CRITICAL LAB 46 BS. RECHECKED PATIENT BS 50. BEGAN ORANGE JUICE AND SUGAR. AND STARTED PLACING IV. CALLED FOR GLUCOSE PROTOCOL ORDER. CONTINUED WITH JUICE. RECHECKED BS DROPPING AT 41. GOT ORDER FOR GLUCAGON SC. ADMINISTERED WITH NO RESULTS. GEL ADMINISTERED WITH BS REMAINING AT 46. STILL UNABLE TO START IV. ATTEMPTED IV 4 TIMES. ASSISTANCE RECEIVED AND IV STARTED IN FOREAM OF RIGHT ARM. APPRECIATE ASSISTANCE. SUGAR RUBBED DIRECTLY ON MUCOSA X3 WITH NO INCREASE IN SUGAR. DEXTROSE ADMINISTERED VIA IV. NEW ORDER FOR DEX WITH VIT STARTED. BS RECHECKED UP TO 71. RECHECKED AGAIN AN HOUR LATER UP TO 126. BLOOD SUGAR CHECKED AT LUNCH 162 NO COVERAGE ADMINISTERED. WILL CONTINUE TO MONITOR.
[2020-08-11 11:11] LABS: HEPATITIS C ANTIBODY 0.2 S/CO RAT (0.0-0.9)
[2020-08-11 13:06] VITALS: BP 103/61
[2020-08-11 16:17] VITALS: BP 128/65
--- NOTE | 2020-08-11 19:00 | NUR ---
REPORT RECEIVED. PATIENT IS LYING IN BED, IN SEMI-FOWLERS POSITION. PIV TO RT FA, PATENT, INFUSING BANANA BAG @ 30ML/HR. NO NEEDS EXPRESSED AT THIS TIME. CL IN REACH, BED LOCKED AND LOWERED. WILL CPOC.
--- NOTE | 2020-08-12 01:15 | NUR ---
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 THEY DO NOT ACCEPT PERSONAL BELONGINGS SO THE FAMILY WILL BE NOTIFIED TO COME RETRIEVE THEM.
--- NOTE | 2020-08-14 17:50 | MORECARE ---
CASE MANAGEMENT DISCHARGE SUMMARY PATIENT: LAURI BRAVO UNIT: [id number] ADM DATE: 08/09/20 AGE: 70 : 48 SEX: M ROOM/BED: D.2130 AUTHOR: FRIDA,DOC PHYSICIAN: REFERRING PHYSICIAN: KATE VIEIRA MD DATE OF SERVICE: 08/14/20 Case Management Discharge Planning Summary DCP REVIEW SUMMARY ANTICIPATED D/C DATE: EXPECTED LOS : CASE STATUS: DCP Complete INITIAL REVIEW: 08/09/2020 INITIAL REVIEWER: Saloni Vail FINAL DISCHARGE DISPOSITION: : FINAL REVIEWER: FINAL REVIEW DATE: DCP [employer] Questions [employer] Answers QUESTION: ANSWER : PATIENT: LAURI BRAVO ENCOUNTER: [id number] MEDICAL RECORD#: [id number] ADMISSION DATE: 08/09/2020 DISCHARGE DATE: 08/11/2020 ATTENDING MD: MICHELLE: 194- AGE: 70 MARITAL STATUS: M DC PLAN ID: [id number] FACILITY: [facility] PRINTED ON: 08/14/20 17:50 CT All edits/amendments must be made on the electronic document DICTATION DATE: 08/14/201749 DIGITAL PHOTOGRAPHER: KAYLEE 08/14/201749 RPT#: [id number] DC DATE:08/11/20 STATUS: DIS IN [facility] [address] [place] [address] END OF REPORT
== END 2020-08-11 21:01 | DRG 919 ==
LOC: D.ER 15:36 → D.EDHOLD 21:30 → D.M2 08-10 13:09
PROVIDERS: Emergency Medicine; Family Medicine; Internal Medicine Nephrology; ADMIT Internal Medicine Nephrology; ATTEND Internal Medicine Nephrology
PROC: 0BH17EZ Insertion of Endotracheal Airway into Trachea, Via Natural or Artificial Opening (ICD-10-PCS; principal; 2020-08-11)
DX: T85.898A Other specified complication of other internal prosthetic devices, implants and grafts, initial encounter (principal); N18.6 End stage renal disease; Q61.3 Polycystic kidney, unspecified; I13.2 Hypertensive heart and chronic kidney disease with heart failure and with stage 5 chronic kidney disease, or end stage renal disease; I95.9 Hypotension, unspecified; E83.39 Other disorders of phosphorus metabolism; I25.10 Atherosclerotic heart disease of native coronary artery without angina pectoris; I50.9 Heart failure, unspecified; Z79.82 Long term (current) use of aspirin; R41.82 Altered mental status, unspecified; D63.1 Anemia in chronic kidney disease; E87.5 Hyperkalemia; E03.9 Hypothyroidism, unspecified; I46.9 Cardiac arrest, cause unspecified; Z99.2 Dependence on renal dialysis